=== PATIENT | female | born 1970 | race Caucasian/White ===

== ENCOUNTER 2019-05-29 17:08 | Inpatient (IN) | payer BC ==
[~2019-05-29] VITALS: Ht 152.4 cm; Wt 75.0 kg
[2019-05-29 19:53] LABS: BASO % 0 % (0-3); EOS # 0.4 x10^3/uL (0.0-0.7); EOS % 3 % (0-3); HEMATOCRIT 40.7 % (36.0-47.0); HEMOGLOBIN 13.9 g/dL (12.0-15.5); LYMPH # 4.6 x10^3/uL (1.0-4.8); LYMPH % 27 % (24-48); MEAN CORPUSCULAR HEMOGLOBIN 28 pg (25-35); MEAN CORPUSCULAR HGB CONC 34 g/dL (31-37); MEAN CORPUSCULAR VOLUME 82 fL (79-100); MONO # 1.3 x10^3/uL (0.0-1.1); MONO % 8 % (0-9); NEUT # 10.4 x10^3/uL (1.8-7.7); NEUT % 62 % (31-73); PLATELET COUNT 428 x10^3/uL (140-400); RED BLOOD COUNT 4.99 x10^6/uL (3.50-5.40); RED CELL DISTRIBUTION WIDTH 14.4 % (11.5-14.5); WHITE BLOOD COUNT 16.8 x10^3/uL (4.0-11.0)
[2019-05-29 19:57] LABS: BILIRUBIN,URINE SMALL (NEG); CLARITY,URINE CLEAR; COLOR,URINE AMBER; NITRITE,URINE NEGATIVE (NEG); PROTEIN,URINE NEGATIVE (NEG-TRACE); UROBILINOGEN,URINE 0.2 mg/dL (0.2 mg/dL)
[2019-05-29] MEDS ORDERED: oxyCODONE/APAP 5/325 1 TAB TABLET PO PRN (20:00)
[2019-05-29] MEDS ORDERED: levOFLOXacin PER PHARMACY. MC PRN (20:00)
[2019-05-29] MEDS ORDERED: ACETAMINOPHEN 500 MG TABLET PO PRN (20:00)
[2019-05-29] MEDS ORDERED: IV NORMAL SALINE 1000ML BAG 1,000 ML IV SCH (20:00)
[2019-05-29 20:05] LABS: BACTERIA,URINE MANY /HPF (0-FEW); SQUAMOUS EPITHELIAL CELL,UR MOD /LPF
--- NOTE | 2019-05-29 20:06 | PHYS DOC ---
Past Medical History Past Medical History: Asthma, Gallstones Past Surgical History: Tonsillectomy Additional Past Surgical Histo: KIDNEY Alcohol Use: Occasionally Drug Use: None Adult General Chief Complaint Chief Complaint: ABDOMINAL PAIN HPI HPI Patient is a 48 year old female who presents with complaining of abdominal pain. Patient complaining of intermittent episodes of right upper quadrant and epigastric pain for a while that getting worse for the last 4-5 days as an aching pain with episodes of sharp pain with radiation to her shoulder blade. Patient complaining of nausea and intermittent episodes of vomiting and diarrhea. Patient had outpatient gallbladder ultrasound that showed acute calculus cholecystitis and was advised to come to emergency room by Dr. Rg for hospitalization and surgery. Patient denies fever and chills, chest pain, shortness of breath, focal neuro deficit, urinary symptom, . Review of Systems Review of Systems Constitutional: Denies fever or chills [] Eyes: Denies change in visual acuity, redness, or eye pain [] HENT: Denies nasal congestion or sore throat [] Respiratory: Denies cough or shortness of breath [] Cardiovascular: No additional information not addressed in HPI [] GI: Reports abdominal pain, nausea, vomiting, diarrhea [] : Denies dysuria or hematuria [] Musculoskeletal: Denies back pain or joint pain [] Integument: Denies rash or skin lesions [] Neurologic: Denies headache, focal weakness or sensory changes [] Endocrine: Denies polyuria or polydipsia [] All other systems were reviewed and found to be within normal limits, except as documented in this note. Current Medications Current Medications Allergies Allergies Allergies Coded Allergies Type Severity Reaction Last Updated Verified No Known Drug Allergies 05/29/19 No Physical Exam Physical Exam Constitutional: Well developed, well nourished, mild distress, non-toxic appearance. [] HENT: Normocephalic, atraumatic. Eyes: PERRLA, EOMI, conjunctiva normal, no discharge. [] Neck: Normal range of motion, no tenderness, supple, no stridor. [] Cardiovascular:Heart rate regular rhythm, no murmur [] Lungs & Thorax: Bilateral breath sounds clear to auscultation [] Abdomen: Bowel sounds normal, soft, right upper quadrant tenderness with positive Stevenson's sign, no masses, no pulsatile masses. [] Skin: Warm, dry, no erythema, no rash. [] Back: No tenderness, no CVA tenderness. [] Extremities: No tenderness, no cyanosis, no clubbing, ROM intact, no edema. [] Neurologic: Alert and oriented X 3, no focal deficits noted. [] Psychologic: Affect normal, judgement normal, mood normal. [] Current Patient Data Vital Signs Vital Signs Date Time Temp Pulse Resp B/P (MAP) Pulse Ox O2 Delivery O2 Flow Rate FiO2 05/29/19 19:13 98.8 76 16 123/69 (87) 98 Room Air 98.8 Lab Values Laboratory Tests Test 05/29/19 17:19 05/29/19 19:32 05/29/19 19:40 Urine Collection Type Unknown Urine Color Kacy Urine Clarity Clear Urine pH 6.0 Urine Specific [place] 1.025 Urine Protein Negative mg/dL (NEG-TRACE) Urine Glucose (UA) Negative mg/dL (NEG) Urine Ketones (Stick) Negative mg/dL (NEG) Urine Blood Trace (NEG) Urine Nitrite Negative (NEG) Urine Bilirubin Small (NEG) Urine Urobilinogen Dipstick 0.2 mg/dL (0.2 mg/dL) Urine Leukocyte Esterase Small (NEG) Urine RBC 1-2 /HPF (0-2) Urine WBC 5-10 /HPF (0-4) Urine Squamous Epithelial Cells Mod /LPF Urine Bacteria Many /HPF (0-FEW) Urine Mucus Mod /LPF POC Urine HCG, Qualitative Hcg negative (Negative) White Blood Count 16.8 x10^3/uL (4.0-11.0) H Red Blood Count 4.99 x10^6/uL (3.50-5.40) Hemoglobin 13.9 g/dL (12.0-15.5) Hematocrit 40.7 % (36.0-47.0) Mean Corpuscular Volume 82 fL (79-100) Mean Corpuscular Hemoglobin 28 pg (25-35) Mean Corpuscular Hemoglobin Concent 34 g/dL (31-37) Red Cell Distribution Width 14.4 % (11.5-14.5) Platelet Count 428 x10^3/uL (140-400) H Neutrophils (%) (Auto) 62 % (31-73) Lymphocytes (%) (Auto) 27 % (24-48) Monocytes (%) (Auto) 8 % (0-9) Eosinophils (%) (Auto) 3 % (0-3) Basophils (%) (Auto) 0 % (0-3) Neutrophils # (Auto) 10.4 x10^3/uL (1.8-7.7) H Lymphocytes # (Auto) 4.6 x10^3/uL (1.0-4.8) Monocytes # (Auto) 1.3 x10^3/uL (0.0-1.1) H Eosinophils # (Auto) 0.4 x10^3/uL (0.0-0.7) Basophils # (Auto) 0.0 x10^3/uL (0.0-0.2) Sodium Level 142 mmol/L (136-145) Potassium Level 3.8 mmol/L (3.5-5.1) Chloride Level 102 mmol/L (98-107) Carbon Dioxide Level 30 mmol/L (21-32) Anion Gap 10 (6-14) Blood Urea Nitrogen 13 mg/dL (7-20) Creatinine 0.9 mg/dL (0.6-1.0) Estimated GFR (Cockcroft-Gault) 67.1 BUN/Creatinine Ratio 14 (6-20) Glucose Level 88 mg/dL (70-99) Calcium Level 10.1 mg/dL (8.5-10.1) Total Bilirubin 0.2 mg/dL (0.2-1.0) Aspartate Amino Transferase (AST) 14 U/L (15-37) L Alanine Aminotransferase (ALT) 20 U/L (14-59) Alkaline Phosphatase 104 U/L (46-116) Total Protein 7.8 g/dL (6.4-8.2) Albumin 3.4 g/dL (3.4-5.0) Albumin/Globulin Ratio 0.8 (1.0-1.7) L Lipase 137 U/L (73-393) Laboratory Tests 05/29/19 19:40 Laboratory Tests 05/29/19 19:40 EKG EKG [] Radiology/Procedures Radiology/Procedures [] Course & Med Decision Making Course & Med Decision Making Pertinent Labs reviewed. (See chart for details) Evaluation of patient in ER showed 48-year-old female patient with right upper quadrant pain and positive Morphis in an outpatient ultrasound report that shows a calculus cholecystitis.Patient requiring admission for further evaluation and treatment. Discussed with Dr. Mcclendon who is in agreement with admission. Discussed findings and plan with patient and family, who acknowledge understanding and agreement. Dragon Disclaimer Dragon Disclaimer This electronic medical record was generated, in whole or in part, using a voice recognition dictation system. Departure Departure Impression: Primary Impression: Acute calculous cholecystitis Additional Impression: Urinary tract infection Disposition: ADMITTED INPATIENT (at 1958) Admitting Physician: HIMS (Dr. Mcclendon accepted admission at 1957) Condition: IMPROVED Referrals: UNKNOWN PCP NAME (PCP) Problem Qualifiers Additional Impression: Urinary tract infection Urinary tract infection type: site unspecified Hematuria presence: without hematuria Qualified Codes: N39.0 - Urinary tract infection, site not specified REBECCA MORILLO MD May 29, 2019 20:06
[2019-05-29 20:07] LABS: CALCIUM 10.1 mg/dL (8.5-10.1); CREATININE 0.9 mg/dL (0.6-1.0); GFR 67.1; POTASSIUM 3.8 mmol/L (3.5-5.1)
[2019-05-29 20:14] LABS: ALBUMIN 3.4 g/dL (3.4-5.0); ALBUMIN/GLOBULIN RATIO 0.8 (1.0-1.7); TOTAL BILIRUBIN 0.2 mg/dL (0.2-1.0); TOTAL PROTEIN 7.8 g/dL (6.4-8.2)
[2019-05-29] MEDS ORDERED: KETOROLAC 30 MG/ML VIAL. IV ONE (20:15)
[2019-05-29 20:25] VITALS: BP 119/76
--- NOTE | 2019-05-29 20:28 | NUR ---
The patient, CEZAR RICCI, 48 y/o, F admitted by KAREN CELIS MD, was given written information regarding hospital policies, unit procedures and contact persons. Patient was transported from ED to room 442 via wheelchair with at bedside. RN performed a head to toe assessment at that time, VSS, afebrile, pain rated 4/10. Bed is in lowest locked position and call light within reach. Valuables were checked and left in the room with patient. RN will monitor patient closely.
[2019-05-29] MEDS ORDERED: ONDANSETRON PF 4 MG/2 ML VIAL. IV PRN (20:30)
--- NOTE | 2019-05-29 20:43 | PDOC1 ---
History and Physical Date of Admission Date of Admission DATE: 05/29/19 TIME: 20:40 Identification/Chief Complaint Chief Complaint abd pain x 4 days Source Source: Caregiver, Chart review, Patient History of Present Illness History of Present Illness very pleasant 48 yo white female, no signif past medical, 4 day hx RUQ pain, no fever, no abd pain, no BM changes, US showed acalculous cholecystitis with positive coombs sign as ordered by GS as OP< advised admission, NPO post MN< amenable to sx . NOn toxic appearing- pain controlled with IVpain meds, at bedside Past Medical History Cardiovascular: No pertinent hx Pulmonary: No pertinent hx GI: No pertinent hx Heme/Onc: No pertinent hx Hepatobiliary: No pertinent hx Psych: No pertinent hx Rheumatologic: No pertinent hx Infectious disease: No pertinent hx ENT: No pertinent hx Renal/: No pertinent hx Endocrine: No pertinent hx Dermatology: No pertinent hx Past Surgical History Past Surgical History: No pertinent history Family History Family History: No Significant Social History Smoke: No ALCOHOL: occassional Drugs: None Current Medications Current Medications Current Medications Sodium Chloride 1,000 ml @ 1,000 mls/hr Q1H IV Last administered on 05/29/19at 19:57; Start 05/29/19 at 20:00; Stop 05/29/19 at 20:59 Ketorolac Tromethamine (Toradol 30mg Vial) 30 mg 1X ONCE IV Last administered on 05/29/19at 20:04; Start 05/29/19 at 20:15; Stop 05/29/19 at 20:16; Status DC Fentanyl Citrate (Fentanyl 2ml Vial) 50 mcg PRN Q2HR PRN IV PAIN; Start 05/29/19 at 20:00 Oxycodone/ Acetaminophen (Percocet 5/325) 1 tab PRN Q4HRS PRN PO PAIN; Start 05/29/19 at 20:00 Levofloxacin/ Dextrose (Levaquin Per Pharmacy) 1 each PRN DAILY PRN MC SEE COMMENTS; Start 05/29/19 at 20:00 Acetaminophen (Tylenol) 500 mg PRN Q6HRS PRN PO MILD PAIN / TEMP; Start 05/29/19 at 20:00 Ondansetron HCl (Zofran) 4 mg PRN Q6HRS PRN IV NAUSEA/VOMITING; Start 05/29/19 at 20:00 Zolpidem Tartrate (Ambien) 5 mg PRN QHS PRN PO INSOMNIA; Start 05/29/19 at 20:00 Ondansetron HCl (Zofran) 4 mg PRN Q8HRS PRN IV NAUSEA/VOMITING; Start 05/29/19 at 20:30; Stop 05/30/19 at 20:29; Status UNV Sodium Chloride 1,000 ml @ 150 mls/hr Q6H40M IV ; Start 05/29/19 at 21:00; Stop 05/30/19 at 20:59 Levofloxacin/ Dextrose 100 ml @ 100 mls/hr Q24H IV ; Start 05/29/19 at 21:00 Allergies Allergies: Coded Allergies: No Known Drug Allergies (Unverified , 05/29/19) ROS Review of System as per HPI, rest of 14 pt neg Physical Exam General: Alert, Oriented X3, Cooperative, No acute distress HEENT: Atraumatic, PERRLA, EOMI Lungs: Clear to auscultation, Normal air movement Heart: S1S2, RRR, no thrills, no rubs, no gallops Cardiovascular: S1 Breasts: Normal, Rt breast nml w/o mass, Lt breast nml w/o mass, Nipples normal Abdomen: Normal bowel sounds, Soft, Other (tenderness RUQ but no guarding) Rectal Exam: not examined PELVIC: Nml ext genitalia Extremities: No clubbing, No cyanosis, No edema, Normal pulses, No tenderness/swelling Skin: No rashes, No breakdown, No significant lesion Neuro: Normal gait, Normal speech, Strength at 5/5 X4 ext, Normal tone, Sensation intact, Cranial nerves 3-12 NL, Reflexes 2+ Psych/Mental Status: Mental status NL, Mood NL Vitals Vitals Vital Signs Date Time Temp Pulse Resp B/P (MAP) Pulse Ox O2 Delivery O2 Flow Rate FiO2 05/29/19 20:21 68 18 117/55 (75) 98 Room Air 05/29/19 19:13 98.8 98.8 Labs Labs Laboratory Tests Test 05/29/19 17:19 05/29/19 19:32 05/29/19 19:40 Urine Collection Type Unknown Urine Color Kacy Urine Clarity Clear Urine pH 6.0 Urine Specific [place] 1.025 Urine Protein Negative mg/dL (NEG-TRACE) Urine Glucose (UA) Negative mg/dL (NEG) Urine Ketones (Stick) Negative mg/dL (NEG) Urine Blood Trace (NEG) Urine Nitrite Negative (NEG) Urine Bilirubin Small (NEG) Urine Urobilinogen Dipstick 0.2 mg/dL (0.2 mg/dL) Urine Leukocyte Esterase Small (NEG) Urine RBC 1-2 /HPF (0-2) Urine WBC 5-10 /HPF (0-4) Urine Squamous Epithelial Cells Mod /LPF Urine Bacteria Many /HPF (0-FEW) Urine Mucus Mod /LPF Bedside Urine HCG, Qualitative Hcg negative (Negative) White Blood Count 16.8 x10^3/uL (4.0-11.0) Red Blood Count 4.99 x10^6/uL (3.50-5.40) Hemoglobin 13.9 g/dL (12.0-15.5) Hematocrit 40.7 % (36.0-47.0) Mean Corpuscular Volume 82 fL (79-100) Mean Corpuscular Hemoglobin 28 pg (25-35) Mean Corpuscular Hemoglobin Concent 34 g/dL (31-37) Red Cell Distribution Width 14.4 % (11.5-14.5) Platelet Count 428 x10^3/uL (140-400) Neutrophils (%) (Auto) 62 % (31-73) Lymphocytes (%) (Auto) 27 % (24-48) Monocytes (%) (Auto) 8 % (0-9) Eosinophils (%) (Auto) 3 % (0-3) Basophils (%) (Auto) 0 % (0-3) Neutrophils # (Auto) 10.4 x10^3/uL (1.8-7.7) Lymphocytes # (Auto) 4.6 x10^3/uL (1.0-4.8) Monocytes # (Auto) 1.3 x10^3/uL (0.0-1.1) Eosinophils # (Auto) 0.4 x10^3/uL (0.0-0.7) Basophils # (Auto) 0.0 x10^3/uL (0.0-0.2) Sodium Level 142 mmol/L (136-145) Potassium Level 3.8 mmol/L (3.5-5.1) Chloride Level 102 mmol/L (98-107) Carbon Dioxide Level 30 mmol/L (21-32) Anion Gap 10 (6-14) Blood Urea Nitrogen 13 mg/dL (7-20) Creatinine 0.9 mg/dL (0.6-1.0) Estimated GFR (Cockcroft-Gault) 67.1 BUN/Creatinine Ratio 14 (6-20) Glucose Level 88 mg/dL (70-99) Calcium Level 10.1 mg/dL (8.5-10.1) Total Bilirubin 0.2 mg/dL (0.2-1.0) Aspartate Amino Transf (AST/SGOT) 14 U/L (15-37) Alanine Aminotransferase (ALT/SGPT) 20 U/L (14-59) Alkaline Phosphatase 104 U/L (46-116) Total Protein 7.8 g/dL (6.4-8.2) Albumin 3.4 g/dL (3.4-5.0) Albumin/Globulin Ratio 0.8 (1.0-1.7) Lipase 137 U/L (73-393) Laboratory Tests Test 05/29/19 17:19 05/29/19 19:32 05/29/19 19:40 Urine Collection Type Unknown Urine Color Kacy Urine Clarity Clear Urine pH 6.0 Urine Specific [place] 1.025 Urine Protein Negative mg/dL (NEG-TRACE) Urine Glucose (UA) Negative mg/dL (NEG) Urine Ketones (Stick) Negative mg/dL (NEG) Urine Blood Trace (NEG) Urine Nitrite Negative (NEG) Urine Bilirubin Small (NEG) Urine Urobilinogen Dipstick 0.2 mg/dL (0.2 mg/dL) Urine Leukocyte Esterase Small (NEG) Urine RBC 1-2 /HPF (0-2) Urine WBC 5-10 /HPF (0-4) Urine Squamous Epithelial Cells Mod /LPF Urine Bacteria Many /HPF (0-FEW) Urine Mucus Mod /LPF Bedside Urine HCG, Qualitative Hcg negative (Negative) White Blood Count 16.8 x10^3/uL (4.0-11.0) Red Blood Count 4.99 x10^6/uL (3.50-5.40) Hemoglobin 13.9 g/dL (12.0-15.5) Hematocrit 40.7 % (36.0-47.0) Mean Corpuscular Volume 82 fL (79-100) Mean Corpuscular Hemoglobin 28 pg (25-35) Mean Corpuscular Hemoglobin Concent 34 g/dL (31-37) Red Cell Distribution Width 14.4 % (11.5-14.5) Platelet Count 428 x10^3/uL (140-400) Neutrophils (%) (Auto) 62 % (31-73) Lymphocytes (%) (Auto) 27 % (24-48) Monocytes (%) (Auto) 8 % (0-9) Eosinophils (%) (Auto) 3 % (0-3) Basophils (%) (Auto) 0 % (0-3) Neutrophils # (Auto) 10.4 x10^3/uL (1.8-7.7) Lymphocytes # (Auto) 4.6 x10^3/uL (1.0-4.8) Monocytes # (Auto) 1.3 x10^3/uL (0.0-1.1) Eosinophils # (Auto) 0.4 x10^3/uL (0.0-0.7) Basophils # (Auto) 0.0 x10^3/uL (0.0-0.2) Sodium Level 142 mmol/L (136-145) Potassium Level 3.8 mmol/L (3.5-5.1) Chloride Level 102 mmol/L (98-107) Carbon Dioxide Level 30 mmol/L (21-32) Anion Gap 10 (6-14) Blood Urea Nitrogen 13 mg/dL (7-20) Creatinine 0.9 mg/dL (0.6-1.0) Estimated GFR (Cockcroft-Gault) 67.1 BUN/Creatinine Ratio 14 (6-20) Glucose Level 88 mg/dL (70-99) Calcium Level 10.1 mg/dL (8.5-10.1) Total Bilirubin 0.2 mg/dL (0.2-1.0) Aspartate Amino Transf (AST/SGOT) 14 U/L (15-37) Alanine Aminotransferase (ALT/SGPT) 20 U/L (14-59) Alkaline Phosphatase 104 U/L (46-116) Total Protein 7.8 g/dL (6.4-8.2) Albumin 3.4 g/dL (3.4-5.0) Albumin/Globulin Ratio 0.8 (1.0-1.7) Lipase 137 U/L (73-393) VTE Prophylaxis Ordered VTE Prophylaxis Devices: Yes VTE Pharmacological Prophylaxi: Yes Assessment/Plan Assessment/Plan 1. Acalculous cholecystitis with positive muphy sign and symptomatic - may have light diet tonyt then NPO post mn GS consulted, no home emds ti reconcile Pain control etc Full code seen at ER KAREN CELIS MD May 29, 2019 20:43
[2019-05-29] MEDS: ZOLPIDEM 5 MG TABLET. PO PRN (23:14)
[2019-05-29 23:26] VITALS: BP 114/61
[2019-05-30] VITALS (12 sets, daily range): BP systolic 99–134; BP diastolic 50–77
[2019-05-30] MEDS ORDERED: ALPR0.5T6 PO (00:08)
[2019-05-30] MEDS ORDERED: LINZESS145 MCG PO (00:09)
[2019-05-30] MEDS: PIPERACILLIN/TAZOBACTAM 3.375 GM in IV NORMAL SALINE 50ML 50 ML IV SCH ×5 (00:25→23:47)
[2019-05-30] MEDS: IV NORMAL SALINE 1000ML BAG 1,000 ML IV SCH ×3 (03:35→10:45)
[2019-05-30] MEDS ORDERED: DEXAMETHASONE SOD PHOS 4 MG/ML VIAL ONE (10:38)
[2019-05-30] MEDS ORDERED: PROPOFOL 20 ML IV ONE (10:38)
[2019-05-30] MEDS ORDERED: ONDANSETRON PF 4 MG/2 ML VIAL. ONE (10:38)
[2019-05-30] MEDS ORDERED: MIDAZOLAM HCL/PF 2 MG/2 ML VIAL. ONE (10:38)
[2019-05-30] MEDS ORDERED: fentaNYL PF VIAL 100 MCG/2 ML VIAL ONE ×2 (10:38→12:35)
[2019-05-30] MEDS ORDERED: LIDOCAINE 2% PF 5 ML VIAL. ONE (10:38)
[2019-05-30] MEDS ORDERED: ROCURONIUM 50 MG/5 ML VIAL. ONE (10:39)
[2019-05-30] MEDS ORDERED: BUPIVAC MPF-EPI 0.5%-1:200000 30 ML VIAL. INJ ONE (10:45)
--- NOTE | 2019-05-30 10:45 | NUR ---
Pt to surgery by bed, dentures, glasses and jewelry left in the room. No family at bedside.
[2019-05-30] MEDS ORDERED: IV RINGERS,LACTATED 1000ML 1,000 ML IV SCH (10:47)
[2019-05-30] MEDS ORDERED: GLUCAGON,HUMAN RECOMBINANT 1 MG/ML VIAL. ONE (10:51)
[2019-05-30] MEDS ORDERED: IOHEXOL 300 MG/ML 50 ML VIAL. ONE (10:51)
[2019-05-30] MEDS ORDERED: SURGICEL HEMOSTAT 4X8 EACH. ONE (10:51)
[2019-05-30] MEDS ORDERED: PROCHLORPERAZINE 10 MG/2 ML VIAL. IV PRN (11:00)
[2019-05-30] MEDS ORDERED: HYDROmorphone 2 MG/ML VIAL IV PRN ×2 (11:00→12:45)
[2019-05-30] MEDS ORDERED: fentaNYL PF VIAL 100 MCG/2 ML VIAL IV PRN ×2 (11:00)
--- NOTE | 2019-05-30 11:19 | PDOC2 ---
CONSULT Date of Consult Date of Consult DATE: 05/30/19 TIME: 11:15 Reason for Consult Reason for Consult: symptomatic cholelithiasis Referring Physician Referring Physician: IPC Identification/Chief Complaint Chief Complaint RUQ pain Source Source: Chart review, Patient History of Present Illness Reason for Visit: Trudy is a 48 yo female I know from previous I and D gluteal abscess. She has had RUQ pain, and nausea prompting an US. This showed cholelithiasis with some wall thickening. Past Medical History Cardiovascular: No pertinent hx Pulmonary: No pertinent hx GI: No pertinent hx Heme/Onc: No pertinent hx Hepatobiliary: No pertinent hx Psych: No pertinent hx Rheumatologic: No pertinent hx Infectious disease: No pertinent hx ENT: No pertinent hx Renal/: No pertinent hx Endocrine: No pertinent hx Dermatology: No pertinent hx Past Surgical History Past Surgical History: No pertinent history Family History Family History: No Significant Social History No ALCOHOL: occassional Drugs: None Current Problem List Problem List Problems Medical Problems: (1) Urinary tract infection Status: Acute Current Medications Current Medications Current Medications Sodium Chloride 1,000 ml @ 1,000 mls/hr Q1H IV Last administered on 05/29/19at 19:57; Start 05/29/19 at 20:00; Stop 05/29/19 at 20:59; Status DC Ketorolac Tromethamine (Toradol 30mg Vial) 30 mg 1X ONCE IV Last administered on 05/29/19at 20:04; Start 05/29/19 at 20:15; Stop 05/29/19 at 20:16; Status DC Fentanyl Citrate (Fentanyl 2ml Vial) 50 mcg PRN Q2HR PRN IV PAIN; Start 05/29/19 at 20:00 Oxycodone/ Acetaminophen (Percocet 5/325) 1 tab PRN Q4HRS PRN PO PAIN; Start 05/29/19 at 20:00 Levofloxacin/ Dextrose (Levaquin Per Pharmacy) 1 each PRN DAILY PRN MC SEE COMMENTS; Start 05/29/19 at 20:00 Acetaminophen (Tylenol) 500 mg PRN Q6HRS PRN PO MILD PAIN / TEMP; Start 05/29/19 at 20:00 Ondansetron HCl (Zofran) 4 mg PRN Q6HRS PRN IV NAUSEA/VOMITING; Start 05/29/19 at 20:00 Zolpidem Tartrate (Ambien) 5 mg PRN QHS PRN PO INSOMNIA Last administered on 05/29/19at 23:15; Start 05/29/19 at 20:00 Ondansetron HCl (Zofran) 4 mg PRN Q8HRS PRN IV NAUSEA/VOMITING; Start 05/29/19 at 20:30; Stop 05/30/19 at 20:29; Status UNV Sodium Chloride 1,000 ml @ 150 mls/hr Q6H40M IV Last administered on 05/30/19at 03:35; Start 05/29/19 at 21:00; Stop 05/30/19 at 20:59 Levofloxacin/ Dextrose 100 ml @ 100 mls/hr Q24H IV Last administered on 05/29/19at 21:41; Start 05/29/19 at 21:00 Piperacillin Sod/ Tazobactam Sod 3.375 gm/Sodium Chloride 50 ml @ 100 mls/hr Q6HRS IV Last administered on 05/30/19at 06:15; Start 05/30/19 at 00:00 Metronidazole 100 ml @ 100 mls/hr Q8HRS IV Last administered on 05/30/19at 04:59; Start 05/29/19 at 22:00 Cefazolin Sodium/ Dextrose 50 ml @ 100 mls/hr 1X PREOP PRN IV protocol; Start 05/30/19 at 10:30; Stop 05/31/19 at 18:00 Propofol 20 ml @ As Directed STK-MED ONCE IV ; Start 05/30/19 at 10:38; Stop 05/30/19 at 10:38; Status DC Lidocaine HCl (Lidocaine Pf 2% Vial) 5 ml STK-MED ONCE .ROUTE ; Start 05/30/19 at 10:38; Stop 05/30/19 at 10:38; Status DC Ondansetron HCl (Zofran) 4 mg STK-MED ONCE .ROUTE ; Start 05/30/19 at 10:38; Stop 05/30/19 at 10:38; Status DC Dexamethasone Sodium Phosphate (Decadron) 4 mg STK-MED ONCE .ROUTE ; Start 05/30/19 at 10:38; Stop 05/30/19 at 10:38; Status DC Fentanyl Citrate (Fentanyl 2ml Vial) 100 mcg STK-MED ONCE .ROUTE ; Start 05/30/19 at 10:38; Stop 05/30/19 at 10:38; Status DC Midazolam HCl (Versed) 2 mg STK-MED ONCE .ROUTE ; Start 05/30/19 at 10:38; Stop 05/30/19 at 10:38; Status DC Rocuronium [place] (Zemuron) 50 mg STK-MED ONCE .ROUTE ; Start 05/30/19 at 10:39; Stop 05/30/19 at 10:39; Status DC Bupivacaine HCl/ Epinephrine Bitart (Sensorcain-Mpf Epi 0.5%-[id number]) 30 ml 1X ONCE INJ ; Start 05/30/19 at 10:45; Stop 05/30/19 at 10:46; Status DC Fentanyl Citrate (Fentanyl 2ml Vial) 25 mcg PRN Q5MIN PRN IV MILD PAIN 1-3; Start 05/30/19 at 11:00; Stop 05/31/19 at 10:59 Fentanyl Citrate (Fentanyl 2ml Vial) 50 mcg PRN Q5MIN PRN IV MODERATE TO SEVERE PAIN; Start 05/30/19 at 11:00; Stop 05/31/19 at 10:59 Morphine Sulfate (Morphine Sulfate) 1 mg PRN Q10MIN PRN IV SEVERE PAIN 7-10; Start 05/30/19 at 11:00; Stop 05/31/19 at 10:59 Ringer's Solution 1,000 ml @ 30 mls/hr Q24H IV ; Start 05/30/19 at 10:47; Stop 05/30/19 at 22:46 Hydromorphone HCl (Dilaudid) 0.5 mg PRN Q10MIN PRN IV SEV PAIN, Second choice; Start 05/30/19 at 11:00; Stop 05/31/19 at 10:59 Prochlorperazine Edisylate (Compazine) 5 mg PACU PRN PRN IV NAUSEA, MRX1; Start 05/30/19 at 11:00; Stop 05/31/19 at 10:59 Glucagon (Glucagen) 1 mg STK-MED ONCE .ROUTE ; Start 05/30/19 at 10:51; Stop 05/30/19 at 10:51; Status DC Iohexol (Omnipaque 300 Mg/ml) 50 ml STK-MED ONCE .ROUTE ; Start 05/30/19 at 10:5 1; Stop 05/30/19 at 10:51; Status DC Cellulose (Surgicel Hemostat 4x8) 1 each STK-MED ONCE .ROUTE ; Start 05/30/19 at 10:51; Stop 05/30/19 at 10:51; Status DC Active Scripts Active Reported Linzess (Linaclotide) 145 Mcg Capsule 145 Mcg PO DAILY07 Alprazolam 0.5 Mg Tablet 0.5 Mg PO PRN Q6HRS PRN Allergies Allergies: Coded Allergies: No Known Drug Allergies (Unverified , 05/29/19) ROS Review of System negative with exception of present complaints Physical Exam General: Alert, Cooperative, No acute distress HEENT: Atraumatic Lungs: Normal air movement Heart: Regular rate Abdomen: Soft, Other (minimally TTP in the RUQ) Extremities: No clubbing Neuro: Normal speech Vitals VITALS Vital Signs Date Time Temp Pulse Resp B/P (MAP) Pulse Ox O2 Delivery O2 Flow Rate FiO2 05/30/19 07:50 Room Air 05/30/19 07:00 97.7 54 18 99/50 (66) 100 97.7 Labs Labs Laboratory Tests Test 05/29/19 17:19 05/29/19 19:32 05/29/19 19:40 Urine Collection Type Unknown Urine Color Kacy Urine Clarity Clear Urine pH 6.0 Urine Specific [place] 1.025 Urine Protein Negative mg/dL (NEG-TRACE) Urine Glucose (UA) Negative mg/dL (NEG) Urine Ketones (Stick) Negative mg/dL (NEG) Urine Blood Trace (NEG) Urine Nitrite Negative (NEG) Urine Bilirubin Small (NEG) Urine Urobilinogen Dipstick 0.2 mg/dL (0.2 mg/dL) Urine Leukocyte Esterase Small (NEG) Urine RBC 1-2 /HPF (0-2) Urine WBC 5-10 /HPF (0-4) Urine Squamous Epithelial Cells Mod /LPF Urine Bacteria Many /HPF (0-FEW) Urine Mucus Mod /LPF Bedside Urine HCG, Qualitative Hcg negative (Negative) White Blood Count 16.8 x10^3/uL (4.0-11.0) Red Blood Count 4.99 x10^6/uL (3.50-5.40) Hemoglobin 13.9 g/dL (12.0-15.5) Hematocrit 40.7 % (36.0-47.0) Mean Corpuscular Volume 82 fL (79-100) Mean Corpuscular Hemoglobin 28 pg (25-35) Mean Corpuscular Hemoglobin Concent 34 g/dL (31-37) Red Cell Distribution Width 14.4 % (11.5-14.5) Platelet Count 428 x10^3/uL (140-400) Neutrophils (%) (Auto) 62 % (31-73) Lymphocytes (%) (Auto) 27 % (24-48) Monocytes (%) (Auto) 8 % (0-9) Eosinophils (%) (Auto) 3 % (0-3) Basophils (%) (Auto) 0 % (0-3) Neutrophils # (Auto) 10.4 x10^3/uL (1.8-7.7) Lymphocytes # (Auto) 4.6 x10^3/uL (1.0-4.8) Monocytes # (Auto) 1.3 x10^3/uL (0.0-1.1) Eosinophils # (Auto) 0.4 x10^3/uL (0.0-0.7) Basophils # (Auto) 0.0 x10^3/uL (0.0-0.2) Sodium Level 142 mmol/L (136-145) Potassium Level 3.8 mmol/L (3.5-5.1) Chloride Level 102 mmol/L (98-107) Carbon Dioxide Level 30 mmol/L (21-32) Anion Gap 10 (6-14) Blood Urea Nitrogen 13 mg/dL (7-20) Creatinine 0.9 mg/dL (0.6-1.0) Estimated GFR (Cockcroft-Gault) 67.1 BUN/Creatinine Ratio 14 (6-20) Glucose Level 88 mg/dL (70-99) Calcium Level 10.1 mg/dL (8.5-10.1) Total Bilirubin 0.2 mg/dL (0.2-1.0) Aspartate Amino Transf (AST/SGOT) 14 U/L (15-37) Alanine Aminotransferase (ALT/SGPT) 20 U/L (14-59) Alkaline Phosphatase 104 U/L (46-116) Total Protein 7.8 g/dL (6.4-8.2) Albumin 3.4 g/dL (3.4-5.0) Albumin/Globulin Ratio 0.8 (1.0-1.7) Lipase 137 U/L (73-393) Laboratory Tests Test 05/29/19 17:19 05/29/19 19:32 05/29/19 19:40 Urine Collection Type Unknown Urine Color Kacy Urine Clarity Clear Urine pH 6.0 Urine Specific [place] 1.025 Urine Protein Negative mg/dL (NEG-TRACE) Urine Glucose (UA) Negative mg/dL (NEG) Urine Ketones (Stick) Negative mg/dL (NEG) Urine Blood Trace (NEG) Urine Nitrite Negative (NEG) Urine Bilirubin Small (NEG) Urine Urobilinogen Dipstick 0.2 mg/dL (0.2 mg/dL) Urine Leukocyte Esterase Small (NEG) Urine RBC 1-2 /HPF (0-2) Urine WBC 5-10 /HPF (0-4) Urine Squamous Epithelial Cells Mod /LPF Urine Bacteria Many /HPF (0-FEW) Urine Mucus Mod /LPF Bedside Urine HCG, Qualitative Hcg negative (Negative) White Blood Count 16.8 x10^3/uL (4.0-11.0) Red Blood Count 4.99 x10^6/uL (3.50-5.40) Hemoglobin 13.9 g/dL (12.0-15.5) Hematocrit 40.7 % (36.0-47.0) Mean Corpuscular Volume 82 fL (79-100) Mean Corpuscular Hemoglobin 28 pg (25-35) Mean Corpuscular Hemoglobin Concent 34 g/dL (31-37) Red Cell Distribution Width 14.4 % (11.5-14.5) Platelet Count 428 x10^3/uL (140-400) Neutrophils (%) (Auto) 62 % (31-73) Lymphocytes (%) (Auto) 27 % (24-48) Monocytes (%) (Auto) 8 % (0-9) Eosinophils (%) (Auto) 3 % (0-3) Basophils (%) (Auto) 0 % (0-3) Neutrophils # (Auto) 10.4 x10^3/uL (1.8-7.7) Lymphocytes # (Auto) 4.6 x10^3/uL (1.0-4.8) Monocytes # (Auto) 1.3 x10^3/uL (0.0-1.1) Eosinophils # (Auto) 0.4 x10^3/uL (0.0-0.7) Basophils # (Auto) 0.0 x10^3/uL (0.0-0.2) Sodium Level 142 mmol/L (136-145) Potassium Level 3.8 mmol/L (3.5-5.1) Chloride Level 102 mmol/L (98-107) Carbon Dioxide Level 30 mmol/L (21-32) Anion Gap 10 (6-14) Blood Urea Nitrogen 13 mg/dL (7-20) Creatinine 0.9 mg/dL (0.6-1.0) Estimated GFR (Cockcroft-Gault) 67.1 BUN/Creatinine Ratio 14 (6-20) Glucose Level 88 mg/dL (70-99) Calcium Level 10.1 mg/dL (8.5-10.1) Total Bilirubin 0.2 mg/dL (0.2-1.0) Aspartate Amino Transf (AST/SGOT) 14 U/L (15-37) Alanine Aminotransferase (ALT/SGPT) 20 U/L (14-59) Alkaline Phosphatase 104 U/L (46-116) Total Protein 7.8 g/dL (6.4-8.2) Albumin 3.4 g/dL (3.4-5.0) Albumin/Globulin Ratio 0.8 (1.0-1.7) Lipase 137 U/L (73-393) Images Images GB US is reviewed Assessment/Plan Assessment/Plan symptomatic cholelithiasis explained risks of cholecystectomy including but not limited to bleeding, infection, injury to bowel, liver or bile ducts with need for further surgery. possible open procedure, diarrhea or drain she will proceed Thanks for consult CAROLE PEREZ MD May 30, 2019 11:19
[2019-05-30] MEDS ORDERED: GLYCOPYRROLATE 1 MG/5 ML VIAL. ONE (11:56)
[2019-05-30] MEDS ORDERED: NEOSTIGMINE METHYLSULFATE 5 MG/5 ML SYRINGE. ONE (11:56)
--- NOTE | 2019-05-30 11:58 | RAD ---
Intraoperative cholangiogram 05/30/2019 CLINICAL HISTORY: Laparoscopic cholecystectomy. Three digital spot radiographs of the right upper quadrant abdomen were obtained during an intraoperative cholangiogram. The total fluoroscopic time is listed as 0.1 minutes. These images demonstrate contrast opacifying the cystic duct remnant, common hepatic duct and proximal left and right hepatic ducts and their branches along with the common bile duct. Free spillage of contrast into the duodenum is noted. No filling defect is seen. IMPRESSION: Negative study. Electronically signed by: Jones West MD (05/30/2019 11:55 AM) [id number]
[2019-05-30] MEDS ORDERED: SEVOFLURANE 61 TO 120 MINUTES. IH ONE (12:07)
[2019-05-30] MEDS: fentaNYL PF VIAL 100 MCG/2 ML VIAL IV PRN ×4 (12:40→23:47)
[2019-05-30] MEDS ORDERED: IV NORMAL SALINE 1000ML BAG 1,000 ML IV SCH (12:41)
[2019-05-30] MEDS ORDERED: IV DEXTROSE 5% 250 ML BAG. IV PRN (12:45)
[2019-05-30] MEDS ORDERED: 0.9 % SODIUM CHLORIDE 10 ML DISP.SYRIN. IV PRN (12:45)
[2019-05-30] MEDS ORDERED: diphenhydrAMINE HCL 25 MG CAPSULE PO PRN (12:45)
[2019-05-30] MEDS ORDERED: ONDANSETRON PF 4 MG/2 ML VIAL. IV PRN (12:45)
[2019-05-30] MEDS ORDERED: NALOXONE 0.4 MG/ML VIAL. IV PRN (12:45)
[2019-05-30] MEDS ORDERED: DEXTROSE 50% 25 GM / 50ML DISP.SYRIN. IV PRN (12:45)
--- NOTE | 2019-05-30 12:51 | PDOC ---
BRIEF OPERATIVE NOTE Date: May 30, 2019 Pre-Op Diagnosis symptomatic cholelithiasis Post-Op Diagnosis same with acute cholecystitis Procedure Performed l/s cholecystectomy with jazlyn Surgeon Arcenio Stitcher Around Pricila MOSS Anesthesia Type: General Blood Loss 10cc IV Fluid 500cc Specimens Obtained GB Findings edematous, distended GB,normal grams Complications none Operative Note Wk # [id number] CAROLE PEREZ MD May 30, 2019 12:51
[2019-05-30] MEDS ORDERED: MORPHINE SULFATE 2 MG/ML VIAL. ONE (12:55)
[2019-05-30] MEDS: MORPHINE SULFATE 2 MG/ML VIAL. IV PRN ×2 (12:59→13:12)
--- NOTE | 2019-05-30 13:24 | OP ---
DATE OF SURGERY: 05/30/2019 PREOPERATIVE DIAGNOSIS: Symptomatic cholelithiasis. POSTOPERATIVE DIAGNOSES: Symptomatic cholelithiasis with acute cholecystitis. PROCEDURE: Laparoscopic cholecystectomy with cholangiogram. SURGEON: Kostas Perez MD ANESTHESIA: General endotracheal. INDUSTRIAL WORKERS: ISA Latham ESTIMATED BLOOD LOSS: 10 mL. INTRAVENOUS FLUID: 500 mL. DESCRIPTION OF PROCEDURE: The patient brought to the operating suite, given a general endotracheal anesthetic and the abdomen prepped and draped in usual sterile fashion. A supraumbilical incision was infiltrated with local anesthetic, incised and a 5 mm Visiport used to safely gain access into the abdominal cavity, taking care to avoid injury to abdominal contents. Pneumoperitoneum established. Camera inserted. The liver was smooth and sharp. The gallbladder was edematous and distended and had omental adhesions on the inferior surface. Remainder of the inspection of the abdomen failed to reveal obvious abnormalities. With the table in reverse Trendelenburg rolled to the left, the epigastric, midclavicular and lateral ports were placed under direct vision. Approximately 80 mL of concentrated bile were aspirated from the distended gallbladder to allow grasping of the fundus and retracting it superolaterally. A careful blunt and cautery dissection of the omental adhesions to expose the gallbladder, taking care to avoid injury to the adjacent bowel. The cystic duct and cystic artery were identified. The duct was clipped on the gallbladder side. Cholangiograms were made. These were normal. In light of this, the catheter was removed. The cystic duct was clipped x 3 and divided, taking care to avoid injury or compromise the common duct. An anterior and posterior branch of the cystic artery were clipped and divided and gallbladder freed from the bed with cautery dissection and placed in an EndoCatch bag. Hemostasis obtained in the fossa with cautery and some Surgicel. No evidence of bile leak was seen. A 19-Telugu round Ted drain was brought through the epigastric port out the lateral port, sewn to the skin with a silk stitch and left in the subhepatic space for postoperative drainage. Table returned to level. Gallbladder delivered through the epigastric incision. Incision closed with interrupted 0 Vicryl suture. Intra-abdominal pressure decreased to 6 cm of water. No bleeding from the epigastric closure, midclavicular port site after its removal, or from the drain site. Abdomen decompressed, camera removed, no bleeding seen. Skin incisions closed with subcuticular 4-0 Monocryl. Steri-Strips and sterile dressings applied. The patient awakened from her anesthetic and taken to the recovery room in satisfactory condition. KOSTAS PEREZ MD DR: FIDELINA/qing JOB#: [id number] / [id number]
--- NOTE | 2019-05-30 13:50 | NUR ---
Pt back from surgery. A&Ox4, c/o abd pain 04/25, will give pain meds. 3 lap sites CDI, PRECIOUS drain to RUQ draining serosanguineous drainage. Ice pack to abd for comfort. Toleration water and jello. Frequent vitals started. at bedside. Call light within reach, will continue to monitor.
[2019-05-30] MEDS: DOCUSATE SODIUM 100 MG CAPSULE. PO SCH ×2 (13:58→21:15)
[2019-05-30] MEDS: POTASSIUM CL 20MEQ-0.45% NACL 1,000 ML IV SCH ×2 (13:58→17:25)
[2019-05-30] MEDS: ENOXAPARIN 40 MG/0.4 ML SYRINGE. SQ SCH (13:58)
--- NOTE | 2019-05-30 14:00 | NUR ---
1300 lovenox non-administered, it has not been 10 hours since surgery.
--- NOTE | 2019-05-30 14:59 | PDOC ---
PROGRESS NOTES Chief Complaint Chief Complaint 1. Acalculous cholecystitis w SIRS abx pain anxiety disorder irritable bowel obese, BMI 32 History of Present Illness History of Present Illness to surg today, Dr. Rg, edd with grams, cx pending on abx, pain OK, cont current IV prn pain meds, try diet later Vitals Vitals Vital Signs Date Time Temp Pulse Resp B/P (MAP) Pulse Ox O2 Delivery O2 Flow Rate FiO2 05/30/19 14:45 Nasal Cannula 05/30/19 14:10 57 18 112/64 (80) 97 2.0 05/30/19 13:25 97.8 97.8 Physical Exam General: Alert, Cooperative, No acute distress Heart: Regular rate Abdomen: Soft, Other (minimally TTP in the RUQ) Extremities: No clubbing Skin: No rashes, No breakdown, No significant lesion Labs LABS Laboratory Tests Test 05/29/19 17:19 05/29/19 19:32 05/29/19 19:40 Urine Collection Type Unknown Urine Color Kacy Urine Clarity Clear Urine pH 6.0 Urine Specific [place] 1.025 Urine Protein Negative mg/dL (NEG-TRACE) Urine Glucose (UA) Negative mg/dL (NEG) Urine Ketones (Stick) Negative mg/dL (NEG) Urine Blood Trace (NEG) Urine Nitrite Negative (NEG) Urine Bilirubin Small (NEG) Urine Urobilinogen Dipstick 0.2 mg/dL (0.2 mg/dL) Urine Leukocyte Esterase Small (NEG) Urine RBC 1-2 /HPF (0-2) Urine WBC 5-10 /HPF (0-4) Urine Squamous Epithelial Cells Mod /LPF Urine Bacteria Many /HPF (0-FEW) Urine Mucus Mod /LPF Bedside Urine HCG, Qualitative Hcg negative (Negative) White Blood Count 16.8 x10^3/uL (4.0-11.0) Red Blood Count 4.99 x10^6/uL (3.50-5.40) Hemoglobin 13.9 g/dL (12.0-15.5) Hematocrit 40.7 % (36.0-47.0) Mean Corpuscular Volume 82 fL (79-100) Mean Corpuscular Hemoglobin 28 pg (25-35) Mean Corpuscular Hemoglobin Concent 34 g/dL (31-37) Red Cell Distribution Width 14.4 % (11.5-14.5) Platelet Count 428 x10^3/uL (140-400) Neutrophils (%) (Auto) 62 % (31-73) Lymphocytes (%) (Auto) 27 % (24-48) Monocytes (%) (Auto) 8 % (0-9) Eosinophils (%) (Auto) 3 % (0-3) Basophils (%) (Auto) 0 % (0-3) Neutrophils # (Auto) 10.4 x10^3/uL (1.8-7.7) Lymphocytes # (Auto) 4.6 x10^3/uL (1.0-4.8) Monocytes # (Auto) 1.3 x10^3/uL (0.0-1.1) Eosinophils # (Auto) 0.4 x10^3/uL (0.0-0.7) Basophils # (Auto) 0.0 x10^3/uL (0.0-0.2) Sodium Level 142 mmol/L (136-145) Potassium Level 3.8 mmol/L (3.5-5.1) Chloride Level 102 mmol/L (98-107) Carbon Dioxide Level 30 mmol/L (21-32) Anion Gap 10 (6-14) Blood Urea Nitrogen 13 mg/dL (7-20) Creatinine 0.9 mg/dL (0.6-1.0) Estimated GFR (Cockcroft-Gault) 67.1 BUN/Creatinine Ratio 14 (6-20) Glucose Level 88 mg/dL (70-99) Calcium Level 10.1 mg/dL (8.5-10.1) Total Bilirubin 0.2 mg/dL (0.2-1.0) Aspartate Amino Transf (AST/SGOT) 14 U/L (15-37) Alanine Aminotransferase (ALT/SGPT) 20 U/L (14-59) Alkaline Phosphatase 104 U/L (46-116) Total Protein 7.8 g/dL (6.4-8.2) Albumin 3.4 g/dL (3.4-5.0) Albumin/Globulin Ratio 0.8 (1.0-1.7) Lipase 137 U/L (73-393) Assessment and Plan Assessmemt and Plan Problems Medical Problems: (1) Urinary tract infection Status: Acute Comment Review of Relevant I have reviewed the following items gurjit (where applicable) has been applied. Labs Laboratory Tests Test 05/29/19 17:19 05/29/19 19:32 05/29/19 19:40 Urine Collection Type Unknown Urine Color Kacy Urine Clarity Clear Urine pH 6.0 Urine Specific [place] 1.025 Urine Protein Negative mg/dL (NEG-TRACE) Urine Glucose (UA) Negative mg/dL (NEG) Urine Ketones (Stick) Negative mg/dL (NEG) Urine Blood Trace (NEG) Urine Nitrite Negative (NEG) Urine Bilirubin Small (NEG) Urine Urobilinogen Dipstick 0.2 mg/dL (0.2 mg/dL) Urine Leukocyte Esterase Small (NEG) Urine RBC 1-2 /HPF (0-2) Urine WBC 5-10 /HPF (0-4) Urine Squamous Epithelial Cells Mod /LPF Urine Bacteria Many /HPF (0-FEW) Urine Mucus Mod /LPF Bedside Urine HCG, Qualitative Hcg negative (Negative) White Blood Count 16.8 x10^3/uL (4.0-11.0) Red Blood Count 4.99 x10^6/uL (3.50-5.40) Hemoglobin 13.9 g/dL (12.0-15.5) Hematocrit 40.7 % (36.0-47.0) Mean Corpuscular Volume 82 fL (79-100) Mean Corpuscular Hemoglobin 28 pg (25-35) Mean Corpuscular Hemoglobin Concent 34 g/dL (31-37) Red Cell Distribution Width 14.4 % (11.5-14.5) Platelet Count 428 x10^3/uL (140-400) Neutrophils (%) (Auto) 62 % (31-73) Lymphocytes (%) (Auto) 27 % (24-48) Monocytes (%) (Auto) 8 % (0-9) Eosinophils (%) (Auto) 3 % (0-3) Basophils (%) (Auto) 0 % (0-3) Neutrophils # (Auto) 10.4 x10^3/uL (1.8-7.7) Lymphocytes # (Auto) 4.6 x10^3/uL (1.0-4.8) Monocytes # (Auto) 1.3 x10^3/uL (0.0-1.1) Eosinophils # (Auto) 0.4 x10^3/uL (0.0-0.7) Basophils # (Auto) 0.0 x10^3/uL (0.0-0.2) Sodium Level 142 mmol/L (136-145) Potassium Level 3.8 mmol/L (3.5-5.1) Chloride Level 102 mmol/L (98-107) Carbon Dioxide Level 30 mmol/L (21-32) Anion Gap 10 (6-14) Blood Urea Nitrogen 13 mg/dL (7-20) Creatinine 0.9 mg/dL (0.6-1.0) Estimated GFR (Cockcroft-Gault) 67.1 BUN/Creatinine Ratio 14 (6-20) Glucose Level 88 mg/dL (70-99) Calcium Level 10.1 mg/dL (8.5-10.1) Total Bilirubin 0.2 mg/dL (0.2-1.0) Aspartate Amino Transf (AST/SGOT) 14 U/L (15-37) Alanine Aminotransferase (ALT/SGPT) 20 U/L (14-59) Alkaline Phosphatase 104 U/L (46-116) Total Protein 7.8 g/dL (6.4-8.2) Albumin 3.4 g/dL (3.4-5.0) Albumin/Globulin Ratio 0.8 (1.0-1.7) Lipase 137 U/L (73-393) Laboratory Tests Test 05/29/19 17:19 05/29/19 19:32 05/29/19 19:40 Urine Collection Type Unknown Urine Color Kacy Urine Clarity Clear Urine pH 6.0 Urine Specific [place] 1.025 Urine Protein Negative mg/dL (NEG-TRACE) Urine Glucose (UA) Negative mg/dL (NEG) Urine Ketones (Stick) Negative mg/dL (NEG) Urine Blood Trace (NEG) Urine Nitrite Negative (NEG) Urine Bilirubin Small (NEG) Urine Urobilinogen Dipstick 0.2 mg/dL (0.2 mg/dL) Urine Leukocyte Esterase Small (NEG) Urine RBC 1-2 /HPF (0-2) Urine WBC 5-10 /HPF (0-4) Urine Squamous Epithelial Cells Mod /LPF Urine Bacteria Many /HPF (0-FEW) Urine Mucus Mod /LPF Bedside Urine HCG, Qualitative Hcg negative (Negative) White Blood Count 16.8 x10^3/uL (4.0-11.0) Red Blood Count 4.99 x10^6/uL (3.50-5.40) Hemoglobin 13.9 g/dL (12.0-15.5) Hematocrit 40.7 % (36.0-47.0) Mean Corpuscular Volume 82 fL (79-100) Mean Corpuscular Hemoglobin 28 pg (25-35) Mean Corpuscular Hemoglobin Concent 34 g/dL (31-37) Red Cell Distribution Width 14.4 % (11.5-14.5) Platelet Count 428 x10^3/uL (140-400) Neutrophils (%) (Auto) 62 % (31-73) Lymphocytes (%) (Auto) 27 % (24-48) Monocytes (%) (Auto) 8 % (0-9) Eosinophils (%) (Auto) 3 % (0-3) Basophils (%) (Auto) 0 % (0-3) Neutrophils # (Auto) 10.4 x10^3/uL (1.8-7.7) Lymphocytes # (Auto) 4.6 x10^3/uL (1.0-4.8) Monocytes # (Auto) 1.3 x10^3/uL (0.0-1.1) Eosinophils # (Auto) 0.4 x10^3/uL (0.0-0.7) Basophils # (Auto) 0.0 x10^3/uL (0.0-0.2) Sodium Level 142 mmol/L (136-145) Potassium Level 3.8 mmol/L (3.5-5.1) Chloride Level 102 mmol/L (98-107) Carbon Dioxide Level 30 mmol/L (21-32) Anion Gap 10 (6-14) Blood Urea Nitrogen 13 mg/dL (7-20) Creatinine 0.9 mg/dL (0.6-1.0) Estimated GFR (Cockcroft-Gault) 67.1 BUN/Creatinine Ratio 14 (6-20) Glucose Level 88 mg/dL (70-99) Calcium Level 10.1 mg/dL (8.5-10.1) Total Bilirubin 0.2 mg/dL (0.2-1.0) Aspartate Amino Transf (AST/SGOT) 14 U/L (15-37) Alanine Aminotransferase (ALT/SGPT) 20 U/L (14-59) Alkaline Phosphatase 104 U/L (46-116) Total Protein 7.8 g/dL (6.4-8.2) Albumin 3.4 g/dL (3.4-5.0) Albumin/Globulin Ratio 0.8 (1.0-1.7) Lipase 137 U/L (73-393) Medications Current Medications Sodium Chloride 1,000 ml @ 1,000 mls/hr Q1H IV Last administered on 05/29/19at 19:57; Start 05/29/19 at 20:00; Stop 05/29/19 at 20:59; Status DC Ketorolac Tromethamine (Toradol 30mg Vial) 30 mg 1X ONCE IV Last administered on 05/29/19at 20:04; Start 05/29/19 at 20:15; Stop 05/29/19 at 20:16; Status DC Fentanyl Citrate (Fentanyl 2ml Vial) 50 mcg PRN Q2HR PRN IV PAIN Last administered on 05/30/19at 12:47; Start 05/29/19 at 20:00 Oxycodone/ Acetaminophen (Percocet 5/325) 1 tab PRN Q4HRS PRN PO PAIN; Start 05/29/19 at 20:00 Levofloxacin/ Dextrose (Levaquin Per Pharmacy) 1 each PRN DAILY PRN MC SEE COMMENTS; Start 05/29/19 at 20:00 Acetaminophen (Tylenol) 500 mg PRN Q6HRS PRN PO MILD PAIN / TEMP; Start 05/29/19 at 20:00 Ondansetron HCl (Zofran) 4 mg PRN Q6HRS PRN IV NAUSEA/VOMITING; Start 05/29/19 at 20:00 Zolpidem Tartrate (Ambien) 5 mg PRN QHS PRN PO INSOMNIA Last administered on at 23:15; Start 05/29/19 at 20:00 Ondansetron HCl (Zofran) 4 mg PRN Q8HRS PRN IV NAUSEA/VOMITING; Start 05/29/19 at 20:30; Stop 05/30/19 at 20:29; Status UNV Sodium Chloride 1,000 ml @ 150 mls/hr Q6H40M IV Last administered on 05/30/19at 03:35; Start 05/29/19 at 21:00; Stop 05/30/19 at 20:59 Levofloxacin/ Dextrose 100 ml @ 100 mls/hr Q24H IV Last administered on 05/29/19at 21:41; Start 05/29/19 at 21:00 Piperacillin Sod/ Tazobactam Sod 3.375 gm/Sodium Chloride 50 ml @ 100 mls/hr Q6HRS IV Last administered on 05/30/19at 14:00; Start 05/30/19 at 00:00 Metronidazole 100 ml @ 100 mls/hr Q8HRS IV Last administered on 05/30/19at 14:45; Start 05/29/19 at 22:00 Cefazolin Sodium/ Dextrose 50 ml @ 100 mls/hr 1X PREOP PRN IV protocol Last administered on 05/30/19at 11:26; Start 05/30/19 at 10:30; Stop 05/31/19 at 18:00 Propofol 20 ml @ As Directed STK-MED ONCE IV ; Start 05/30/19 at 10:38; Stop 05/30/19 at 10:38; Status DC Lidocaine HCl (Lidocaine Pf 2% Vial) 5 ml STK-MED ONCE .ROUTE ; Start 05/30/19 at 10:38; Stop 05/30/19 at 10:38; Status DC Ondansetron HCl (Zofran) 4 mg STK-MED ONCE .ROUTE ; Start 05/30/19 at 10:38; Stop 05/30/19 at 10:38; Status DC Dexamethasone Sodium Phosphate (Decadron) 4 mg STK-MED ONCE .ROUTE ; Start 05/30/19 at 10:38; Stop 05/30/19 at 10:38; Status DC Fentanyl Citrate (Fentanyl 2ml Vial) 100 mcg STK-MED ONCE .ROUTE ; Start 05/30/19 at 10:38; Stop 05/30/19 at 10:38; Status DC Midazolam HCl (Versed) 2 mg STK-MED ONCE .ROUTE ; Start 05/30/19 at 10:38; Stop 05/30/19 at 10:38; Status DC Rocuronium [place] (Zemuron) 50 mg STK-MED ONCE .ROUTE ; Start 05/30/19 at 10:39; Stop 05/30/19 at 10:39; Status DC Bupivacaine HCl/ Epinephrine Bitart (Sensorcain-Mpf Epi 0.5%-1:[id number]) 30 ml 1X ONCE INJ Last administered on 05/30/19at 12:13; Start 05/30/19 at 10:45; Stop 05/30/19 at 10:46; Status DC Fentanyl Citrate (Fentanyl 2ml Vial) 25 mcg PRN Q5MIN PRN IV MILD PAIN 1-3; Start 05/30/19 at 11:00; Stop 05/31/19 at 10:59 Fentanyl Citrate (Fentanyl 2ml Vial) 50 mcg PRN Q5MIN PRN IV MODERATE TO SEVERE PAIN; Start 05/30/19 at 11:00; Stop 05/31/19 at 10:59 Morphine Sulfate (Morphine Sulfate) 1 mg PRN Q10MIN PRN IV SEVERE PAIN 7-10 Last administered on 05/30/19at 13:12; Start 05/30/19 at 11:00; Stop 05/31/19 at 10:59 Ringer's Solution 1,000 ml @ 30 mls/hr Q24H IV Last administered on 05/30/19at 11:26; Start 05/30/19 at 10:47; Stop 05/30/19 at 22:46 Hydromorphone HCl (Dilaudid) 0.5 mg PRN Q10MIN PRN IV SEV PAIN, Second choice; Start 05/30/19 at 11:00; Stop 05/31/19 at 10:59 Prochlorperazine Edisylate (Compazine) 5 mg PACU PRN PRN IV NAUSEA, MRX1; Start 05/30/19 at 11:00; Stop 05/31/19 at 10:59 Glucagon (Glucagen) 1 mg STK-MED ONCE .ROUTE ; Start 05/30/19 at 10:51; Stop 05/30/19 at 10:51; Status DC Iohexol (Omnipaque 300 Mg/ml) 50 ml STK-MED ONCE .ROUTE Last administered on 05/30/19at 12:13; Start 05/30/19 at 10:51; Stop 05/30/19 at 10:51; Status DC Cellulose (Surgicel Hemostat 4x8) 1 each STK-MED ONCE .ROUTE Last administered on 05/30/19at 11:38; Start 05/30/19 at 10:51; Stop 05/30/19 at 10:51; Status DC Neostigmine Methylsulfate (Neostigmine Methylsulfate) 5 mg STK-MED ONCE .ROUTE ; Start 05/30/19 at 11:56; Stop 05/30/19 at 11:56; Status DC Glycopyrrolate (Robinul) 1 mg STK-MED ONCE .ROUTE ; Start 05/30/19 at 11:56; Stop 05/30/19 at 11:56; Status DC Sevoflurane (Ultane) 60 ml STK-MED ONCE IH ; Start 05/30/19 at 12:07; Stop 05/30/19 at 12:07; Status DC Fentanyl Citrate (Fentanyl 2ml Vial) 100 mcg STK-MED ONCE .ROUTE ; Start 05/30/19 at 12:35; Stop 05/30/19 at 12:36; Status DC Diphenhydramine HCl (Benadryl) 25 mg PRN Q6HRS PRN PO ITCHING; Start 05/30/19 at 12:45 Enoxaparin Sodium (Lovenox 40mg Syringe) 30 mg Q24H SQ ; Start 05/30/19 at 13:00 Sodium Chloride (Normal Saline Flush) 3 ml QSHIFT PRN IV AFTER MEDS AND BLOOD DRAWS; Start 05/30/19 at 12:45 Potassium Chloride/Sodium Chloride 1,000 ml @ 100 mls/hr Q10H IV ; Start 05/30/19 at 12:41 Dextrose (Dextrose 50%-Water Syringe) 12.5 gm PRN Q15MIN PRN IV SEE COMMENTS; Start 05/30/19 at 12:45; Status UNV Dextrose 250 ml PRN Q15MIN PRN IV SEE COMMENTS; Start 05/30/19 at 12:45 Oxycodone/ Acetaminophen (Percocet 5/325) 1 tab PRN Q4HRS PRN PO MILD PAIN, 1ST CHOICE; Start 05/30/19 at 12:45 Oxycodone/ Acetaminophen (Percocet 5/325) 2 tab PRN Q4HRS PRN PO MODERATE PAIN, SEVERE PAIN; Start 05/30/19 at 12:45 Naloxone HCl (Narcan) 0.4 mg PRN Q2MIN PRN IV SEE INSTRUCTIONS; Start 05/30/19 at 12:45 Sodium Chloride 1,000 ml @ 25 mls/hr Q24H IV ; Start 05/30/19 at 12:41 Hydromorphone HCl (Dilaudid) 1 mg PRN Q3HRS PRN IV PAIN Last administered on 05/30/19at 14:00; Start 05/30/19 at 12:45 Docusate Sodium (Colace) 100 mg BID PO ; Start 05/30/19 at 13:00 Ondansetron HCl (Zofran) 4 mg PRN Q6HRS PRN IV NAUESA, 1ST CHOICE; Start 05/30/19 at 12:45 Morphine Sulfate (Morphine Sulfate) 2 mg STK-MED ONCE .ROUTE ; Start 05/30/19 at 12:55; Stop 05/30/19 at 12:56; Status DC Alprazolam (Xanax) 0.5 mg PRN Q6HRS PRN PO ANXIETY / AGITATION; Start 05/30/19 at 15:00; Status UNV Non-Formulary Medication (Linaclotide (Linzess)) 145 mcg DAILY07 PO ; Start 05/31/19 at 07:00; Status UNV Active Scripts Active Reported Linzess (Linaclotide) 145 Mcg Capsule 145 Mcg PO DAILY07 Alprazolam 0.5 Mg Tablet 0.5 Mg PO PRN Q6HRS PRN Vitals/I & O Vital Sign - Last 24 Hours 05/29/19 05/29/19 05/29/19 05/29/19 19:13 20:21 20:25 20:30 Temp 98.8 97.4 98.8 97.4 Pulse 76 68 73 Resp 16 18 20 B/P (MAP) 123/69 (87) 117/55 (75) 119/76 (90) Pulse Ox 98 98 95 O2 Delivery Room Air Room Air Room Air Room Air 05/29/19 05/30/19 05/30/19 05/30/19 23:26 03:36 07:00 07:50 Temp 97.6 97.6 97.7 97.6 97.6 97.7 Pulse 75 69 54 Resp 18 18 18 B/P (MAP) 114/61 (78) 102/65 (77) 99/50 (66) Pulse Ox 96 96 100 O2 Delivery Room Air Room Air Room Air Room Air 05/30/19 05/30/19 05/30/19 05/30/19 11:24 12:23 12:23 12:40 Temp 97.7 97.8 97.8 97.7 97.8 97.8 Pulse 54 90 62 Resp 15 19 16 B/P (MAP) 117/68 116/63 114/62 Pulse Ox 100 96 98 O2 Delivery Room Air Simple Mask Mask Simple Mask O2 Flow Rate 8 8 8.0 05/30/19 05/30/19 05/30/19 05/30/19 12:40 12:47 12:55 12:59 Temp 97.8 97.8 Pulse 62 Resp 20 18 18 18 B/P (MAP) 104/61 Pulse Ox 97 96 96 O2 Delivery Simple Mask Simple Mask Simple Mask Simple Mask O2 Flow Rate 8.0 8.0 8.0 8.0 05/30/19 05/30/19 05/30/19 05/30/19 13:10 13:12 13:25 13:40 Temp 97.8 97.8 97.8 97.8 Pulse 51 58 59 Resp 18 18 18 18 B/P (MAP) 100/61 116/62 120/70 (87) Pulse Ox 96 96 95 97 O2 Delivery Simple Mask Simple Mask Nasal Cannula Nasal Cannula O2 Flow Rate 8.0 8.0 4 2.0 05/30/19 05/30/19 05/30/19 05/30/19 13:55 14:00 14:00 14:00 Pulse 56 Resp 18 B/P (MAP) 107/70 (82) Pulse Ox 96 98 O2 Delivery Nasal Cannula Nasal Cannula Nasal Cannula Nasal Cannula O2 Flow Rate 2.0 2.0 05/30/19 05/30/19 05/30/19 05/30/19 14:00 14:00 14:10 14:45 Pulse 57 Resp 18 B/P (MAP) 112/64 (80) Pulse Ox 97 O2 Delivery Nasal Cannula Nasal Cannula Nasal Cannula Nasal Cannula O2 Flow Rate 2.0 Intake and Output 05/29/19 05/29/19 05/30/19 15:00 23:00 07:00 Intake Total 250 ml 120 ml Balance 250 ml 120 ml SHELL PARK MD May 30, 2019 14:59
[2019-05-30] MEDS ORDERED: ALPRAZolam 0.5 MG TABLET PO PRN (15:00)
[2019-05-30] MEDS: oxyCODONE/APAP 5/325 1 TAB TABLET PO PRN ×3 (16:37→21:24)
[2019-05-30] MEDS: ONDANSETRON PF 4 MG/2 ML VIAL. IV PRN (18:19)
[2019-05-30] MEDS: LACTOBACILLUS RHAMNOSUS GG 1 CAPSULE. PO SCH (21:15)
[2019-05-30] MEDS: ZOLPIDEM 5 MG TABLET. PO PRN (23:45)
[2019-05-31 03:00] VITALS: BP 124/77
[2019-05-31 05:05] LABS: BASO # 0.1 x10^3/uL (0.0-0.2); BASO % 1 % (0-3); EOS # 0.1 x10^3/uL (0.0-0.7); EOS % 0 % (0-3); HEMOGLOBIN 12.4 g/dL (12.0-15.5); LYMPH # 3.8 x10^3/uL (1.0-4.8); LYMPH % 19 % (24-48); MEAN CORPUSCULAR HEMOGLOBIN 27 pg (25-35); MEAN CORPUSCULAR HGB CONC 34 g/dL (31-37); MEAN CORPUSCULAR VOLUME 82 fL (79-100); MONO # 1.5 x10^3/uL (0.0-1.1); MONO % 7 % (0-9); NEUT # 14.9 x10^3/uL (1.8-7.7); NEUT % 73 % (31-73); PLATELET COUNT 415 x10^3/uL (140-400); RED BLOOD COUNT 4.54 x10^6/uL (3.50-5.40); RED CELL DISTRIBUTION WIDTH 14.7 % (11.5-14.5); WHITE BLOOD COUNT 20.3 x10^3/uL (4.0-11.0)
[2019-05-31 05:28] LABS: CALCIUM 9.4 mg/dL (8.5-10.1); CREATININE 0.9 mg/dL (0.6-1.0); GFR 67.1; POTASSIUM 4.3 mmol/L (3.5-5.1)
[2019-05-31] MEDS: PIPERACILLIN/TAZOBACTAM 3.375 GM in IV NORMAL SALINE 50ML 50 ML IV SCH ×3 (05:48→16:48)
[2019-05-31] MEDS: POTASSIUM CL 20MEQ-0.45% NACL 1,000 ML IV SCH ×2 (05:48→16:49)
[2019-05-31] MEDS: fentaNYL PF VIAL 100 MCG/2 ML VIAL IV PRN (05:58)
[2019-05-31] MEDS: NON FORMULARY ITEM (Linaclotide (Linzess) 145 MCG) PO SCH (06:38)
[2019-05-31 07:00] VITALS: BP 110/74
[2019-05-31] MEDS: oxyCODONE/APAP 5/325 1 TAB TABLET PO PRN (07:39)
[2019-05-31] MEDS: DOCUSATE SODIUM 100 MG CAPSULE. PO SCH ×2 (07:39→21:03)
[2019-05-31] MEDS: LACTOBACILLUS RHAMNOSUS GG 1 CAPSULE. PO SCH ×2 (07:39→21:03)
[2019-05-31 07:58] LABS: % BANDS 3 % (0-9); % LYMPHS 26 % (24-48); % MONOS 1 % (0-10); % SEGS 70 % (35-66); PLT ESTIMATE ADEQUATE (ADEQUATE)
--- NOTE | 2019-05-31 08:15 | PDOC ---
SURGICAL PROGRESS NOTE Subjective up to bedside chair, has RUQ pain, tells me the pain pills aren't working Vital Signs Vital Signs Date Time Temp Pulse Resp B/P (MAP) Pulse Ox O2 Delivery O2 Flow Rate FiO2 05/31/19 07:41 94 Room Air 1.5 05/31/19 06:33 20 05/31/19 03:00 97.6 50 124/77 (93) 97.6 I&O Intake and Output 05/31/19 07:00 Intake Total 3750 ml Output Total 10 ml Balance 3740 ml Intake Oral 600 ml IV Total 1950 ml Other 1200 ml Output Estimated Blood Loss 10 ml # Voids 3 PATIENT HAS A SANTIAGO: No General: Alert, No acute distress Lungs: Normal air movement Labs Laboratory Tests Test 05/29/19 17:19 05/29/19 19:32 05/29/19 19:40 05/31/19 05:00 Urine Collection Type Unknown Urine Color Kacy Urine Clarity Clear Urine pH 6.0 Urine Specific [place] 1.025 Urine Protein Negative mg/dL (NEG-TRACE) Urine Glucose (UA) Negative mg/dL (NEG) Urine Ketones (Stick) Negative mg/dL (NEG) Urine Blood Trace (NEG) Urine Nitrite Negative (NEG) Urine Bilirubin Small (NEG) Urine Urobilinogen Dipstick 0.2 mg/dL (0.2 mg/dL) Urine Leukocyte Esterase Small (NEG) Urine RBC 1-2 /HPF (0-2) Urine WBC 5-10 /HPF (0-4) Urine Squamous Epithelial Cells Mod /LPF Urine Bacteria Many /HPF (0-FEW) Urine Mucus Mod /LPF Bedside Urine HCG, Qualitative Hcg negative (Negative) White Blood Count 16.8 x10^3/uL (4.0-11.0) 20.3 x10^3/uL (4.0-11.0) Red Blood Count 4.99 x10^6/uL (3.50-5.40) 4.54 x10^6/uL (3.50-5.40) Hemoglobin 13.9 g/dL (12.0-15.5) 12.4 g/dL (12.0-15.5) Hematocrit 40.7 % (36.0-47.0) 37.0 % (36.0-47.0) Mean Corpuscular Volume 82 fL (79-100) 82 fL (79-100) Mean Corpuscular Hemoglobin 28 pg (25-35) 27 pg (25-35) Mean Corpuscular Hemoglobin Concent 34 g/dL (31-37) 34 g/dL (31-37) Red Cell Distribution Width 14.4 % (11.5-14.5) 14.7 % (11.5-14.5) Platelet Count 428 x10^3/uL (140-400) 415 x10^3/uL (140-400) Neutrophils (%) (Auto) 62 % (31-73) 73 % (31-73) Lymphocytes (%) (Auto) 27 % (24-48) 19 % (24-48) Monocytes (%) (Auto) 8 % (0-9) 7 % (0-9) Eosinophils (%) (Auto) 3 % (0-3) 0 % (0-3) Basophils (%) (Auto) 0 % (0-3) 1 % (0-3) Neutrophils # (Auto) 10.4 x10^3/uL (1.8-7.7) 14.9 x10^3/uL (1.8-7.7) Lymphocytes # (Auto) 4.6 x10^3/uL (1.0-4.8) 3.8 x10^3/uL (1.0-4.8) Monocytes # (Auto) 1.3 x10^3/uL (0.0-1.1) 1.5 x10^3/uL (0.0-1.1) Eosinophils # (Auto) 0.4 x10^3/uL (0.0-0.7) 0.1 x10^3/uL (0.0-0.7) Basophils # (Auto) 0.0 x10^3/uL (0.0-0.2) 0.1 x10^3/uL (0.0-0.2) Sodium Level 142 mmol/L (136-145) 137 mmol/L (136-145) Potassium Level 3.8 mmol/L (3.5-5.1) 4.3 mmol/L (3.5-5.1) Chloride Level 102 mmol/L (98-107) 105 mmol/L (98-107) Carbon Dioxide Level 30 mmol/L (21-32) 24 mmol/L (21-32) Anion Gap 10 (6-14) 8 (6-14) Blood Urea Nitrogen 13 mg/dL (7-20) 11 mg/dL (7-20) Creatinine 0.9 mg/dL (0.6-1.0) 0.9 mg/dL (0.6-1.0) Estimated GFR (Cockcroft-Gault) 67.1 67.1 BUN/Creatinine Ratio 14 (6-20) Glucose Level 88 mg/dL (70-99) 119 mg/dL (70-99) Calcium Level 10.1 mg/dL (8.5-10.1) 9.4 mg/dL (8.5-10.1) Total Bilirubin 0.2 mg/dL (0.2-1.0) Aspartate Amino Transf (AST/SGOT) 14 U/L (15-37) Alanine Aminotransferase (ALT/SGPT) 20 U/L (14-59) Alkaline Phosphatase 104 U/L (46-116) Total Protein 7.8 g/dL (6.4-8.2) Albumin 3.4 g/dL (3.4-5.0) Albumin/Globulin Ratio 0.8 (1.0-1.7) Lipase 137 U/L (73-393) Segmented Neutrophils % 70 % (35-66) Band Neutrophils % 3 % (0-9) Lymphocytes % 26 % (24-48) Monocytes % 1 % (0-10) Platelet Estimate Adequate (ADEQUATE) Laboratory Tests Test 05/31/19 05:00 White Blood Count 20.3 x10^3/uL (4.0-11.0) Red Blood Count 4.54 x10^6/uL (3.50-5.40) Hemoglobin 12.4 g/dL (12.0-15.5) Hematocrit 37.0 % (36.0-47.0) Mean Corpuscular Volume 82 fL (79-100) Mean Corpuscular Hemoglobin 27 pg (25-35) Mean Corpuscular Hemoglobin Concent 34 g/dL (31-37) Red Cell Distribution Width 14.7 % (11.5-14.5) Platelet Count 415 x10^3/uL (140-400) Neutrophils (%) (Auto) 73 % (31-73) Lymphocytes (%) (Auto) 19 % (24-48) Monocytes (%) (Auto) 7 % (0-9) Eosinophils (%) (Auto) 0 % (0-3) Basophils (%) (Auto) 1 % (0-3) Neutrophils # (Auto) 14.9 x10^3/uL (1.8-7.7) Lymphocytes # (Auto) 3.8 x10^3/uL (1.0-4.8) Monocytes # (Auto) 1.5 x10^3/uL (0.0-1.1) Eosinophils # (Auto) 0.1 x10^3/uL (0.0-0.7) Basophils # (Auto) 0.1 x10^3/uL (0.0-0.2) Segmented Neutrophils % 70 % (35-66) Band Neutrophils % 3 % (0-9) Lymphocytes % 26 % (24-48) Monocytes % 1 % (0-10) Platelet Estimate Adequate (ADEQUATE) Sodium Level 137 mmol/L (136-145) Potassium Level 4.3 mmol/L (3.5-5.1) Chloride Level 105 mmol/L (98-107) Carbon Dioxide Level 24 mmol/L (21-32) Anion Gap 8 (6-14) Blood Urea Nitrogen 11 mg/dL (7-20) Creatinine 0.9 mg/dL (0.6-1.0) Estimated GFR (Cockcroft-Gault) 67.1 Glucose Level 119 mg/dL (70-99) Calcium Level 9.4 mg/dL (8.5-10.1) Problem List Problems Medical Problems: (1) Urinary tract infection Status: Acute Assessment/Plan POD 1 l/s edd may be able to go home later today if improves will change pain meds CAROLE PEREZ MD May 31, 2019 08:15
[2019-05-31] MEDS: ONDANSETRON PF 4 MG/2 ML VIAL. IV PRN (10:16)
[2019-05-31 11:00] VITALS: BP 101/54
[2019-05-31] MEDS: HYDROcodone/APAP 7.5/325MG 1 TAB TABLET PO PRN ×3 (11:52→21:06)
[2019-05-31] MEDS: ENOXAPARIN 40 MG/0.4 ML SYRINGE. SQ SCH (11:52)
--- NOTE | 2019-05-31 11:54 | PDOC ---
PROGRESS NOTES Chief Complaint Chief Complaint 1. Acalculous cholecystitis w SIRS abx pain anxiety disorder irritable bowel obese, BMI 32 History of Present Illness History of Present Illness still having a lot of pain, meds changed, OOB to chair cx pending on abx, pain OK, cont current IV prn pain meds, try diet later Vitals Vitals Vital Signs Date Time Temp Pulse Resp B/P (MAP) Pulse Ox O2 Delivery O2 Flow Rate FiO2 05/31/19 08:46 20 94 Room Air 1.5 05/31/19 07:00 97.9 60 110/74 (86) 97.9 Physical Exam General: Alert, No acute distress Heart: Regular rate Abdomen: Soft, Other (minimally TTP in the RUQ) Extremities: No clubbing Skin: No rashes, No breakdown, No significant lesion Labs LABS Laboratory Tests Test 05/31/19 05:00 White Blood Count 20.3 x10^3/uL (4.0-11.0) Red Blood Count 4.54 x10^6/uL (3.50-5.40) Hemoglobin 12.4 g/dL (12.0-15.5) Hematocrit 37.0 % (36.0-47.0) Mean Corpuscular Volume 82 fL (79-100) Mean Corpuscular Hemoglobin 27 pg (25-35) Mean Corpuscular Hemoglobin Concent 34 g/dL (31-37) Red Cell Distribution Width 14.7 % (11.5-14.5) Platelet Count 415 x10^3/uL (140-400) Neutrophils (%) (Auto) 73 % (31-73) Lymphocytes (%) (Auto) 19 % (24-48) Monocytes (%) (Auto) 7 % (0-9) Eosinophils (%) (Auto) 0 % (0-3) Basophils (%) (Auto) 1 % (0-3) Neutrophils # (Auto) 14.9 x10^3/uL (1.8-7.7) Lymphocytes # (Auto) 3.8 x10^3/uL (1.0-4.8) Monocytes # (Auto) 1.5 x10^3/uL (0.0-1.1) Eosinophils # (Auto) 0.1 x10^3/uL (0.0-0.7) Basophils # (Auto) 0.1 x10^3/uL (0.0-0.2) Segmented Neutrophils % 70 % (35-66) Band Neutrophils % 3 % (0-9) Lymphocytes % 26 % (24-48) Monocytes % 1 % (0-10) Platelet Estimate Adequate (ADEQUATE) Sodium Level 137 mmol/L (136-145) Potassium Level 4.3 mmol/L (3.5-5.1) Chloride Level 105 mmol/L (98-107) Carbon Dioxide Level 24 mmol/L (21-32) Anion Gap 8 (6-14) Blood Urea Nitrogen 11 mg/dL (7-20) Creatinine 0.9 mg/dL (0.6-1.0) Estimated GFR (Cockcroft-Gault) 67.1 Glucose Level 119 mg/dL (70-99) Calcium Level 9.4 mg/dL (8.5-10.1) Assessment and Plan Assessmemt and Plan Problems Medical Problems: (1) Urinary tract infection Status: Acute Comment Review of Relevant I have reviewed the following items gurjit (where applicable) has been applied. Labs Laboratory Tests Test 05/29/19 17:19 05/29/19 19:32 05/29/19 19:40 05/31/19 05:00 Urine Collection Type Unknown Urine Color Kacy Urine Clarity Clear Urine pH 6.0 Urine Specific [place] 1.025 Urine Protein Negative mg/dL (NEG-TRACE) Urine Glucose (UA) Negative mg/dL (NEG) Urine Ketones (Stick) Negative mg/dL (NEG) Urine Blood Trace (NEG) Urine Nitrite Negative (NEG) Urine Bilirubin Small (NEG) Urine Urobilinogen Dipstick 0.2 mg/dL (0.2 mg/dL) Urine Leukocyte Esterase Small (NEG) Urine RBC 1-2 /HPF (0-2) Urine WBC 5-10 /HPF (0-4) Urine Squamous Epithelial Cells Mod /LPF Urine Bacteria Many /HPF (0-FEW) Urine Mucus Mod /LPF Bedside Urine HCG, Qualitative Hcg negative (Negative) White Blood Count 16.8 x10^3/uL (4.0-11.0) 20.3 x10^3/uL (4.0-11.0) Red Blood Count 4.99 x10^6/uL (3.50-5.40) 4.54 x10^6/uL (3.50-5.40) Hemoglobin 13.9 g/dL (12.0-15.5) 12.4 g/dL (12.0-15.5) Hematocrit 40.7 % (36.0-47.0) 37.0 % (36.0-47.0) Mean Corpuscular Volume 82 fL (79-100) 82 fL (79-100) Mean Corpuscular Hemoglobin 28 pg (25-35) 27 pg (25-35) Mean Corpuscular Hemoglobin Concent 34 g/dL (31-37) 34 g/dL (31-37) Red Cell Distribution Width 14.4 % (11.5-14.5) 14.7 % (11.5-14.5) Platelet Count 428 x10^3/uL (140-400) 415 x10^3/uL (140-400) Neutrophils (%) (Auto) 62 % (31-73) 73 % (31-73) Lymphocytes (%) (Auto) 27 % (24-48) 19 % (24-48) Monocytes (%) (Auto) 8 % (0-9) 7 % (0-9) Eosinophils (%) (Auto) 3 % (0-3) 0 % (0-3) Basophils (%) (Auto) 0 % (0-3) 1 % (0-3) Neutrophils # (Auto) 10.4 x10^3/uL (1.8-7.7) 14.9 x10^3/uL (1.8-7.7) Lymphocytes # (Auto) 4.6 x10^3/uL (1.0-4.8) 3.8 x10^3/uL (1.0-4.8) Monocytes # (Auto) 1.3 x10^3/uL (0.0-1.1) 1.5 x10^3/uL (0.0-1.1) Eosinophils # (Auto) 0.4 x10^3/uL (0.0-0.7) 0.1 x10^3/uL (0.0-0.7) Basophils # (Auto) 0.0 x10^3/uL (0.0-0.2) 0.1 x10^3/uL (0.0-0.2) Sodium Level 142 mmol/L (136-145) 137 mmol/L (136-145) Potassium Level 3.8 mmol/L (3.5-5.1) 4.3 mmol/L (3.5-5.1) Chloride Level 102 mmol/L (98-107) 105 mmol/L (98-107) Carbon Dioxide Level 30 mmol/L (21-32) 24 mmol/L (21-32) Anion Gap 10 (6-14) 8 (6-14) Blood Urea Nitrogen 13 mg/dL (7-20) 11 mg/dL (7-20) Creatinine 0.9 mg/dL (0.6-1.0) 0.9 mg/dL (0.6-1.0) Estimated GFR (Cockcroft-Gault) 67.1 67.1 BUN/Creatinine Ratio 14 (6-20) Glucose Level 88 mg/dL (70-99) 119 mg/dL (70-99) Calcium Level 10.1 mg/dL (8.5-10.1) 9.4 mg/dL (8.5-10.1) Total Bilirubin 0.2 mg/dL (0.2-1.0) Aspartate Amino Transf (AST/SGOT) 14 U/L (15-37) Alanine Aminotransferase (ALT/SGPT) 20 U/L (14-59) Alkaline Phosphatase 104 U/L (46-116) Total Protein 7.8 g/dL (6.4-8.2) Albumin 3.4 g/dL (3.4-5.0) Albumin/Globulin Ratio 0.8 (1.0-1.7) Lipase 137 U/L (73-393) Segmented Neutrophils % 70 % (35-66) Band Neutrophils % 3 % (0-9) Lymphocytes % 26 % (24-48) Monocytes % 1 % (0-10) Platelet Estimate Adequate (ADEQUATE) Laboratory Tests Test 05/31/19 05:00 White Blood Count 20.3 x10^3/uL (4.0-11.0) Red Blood Count 4.54 x10^6/uL (3.50-5.40) Hemoglobin 12.4 g/dL (12.0-15.5) Hematocrit 37.0 % (36.0-47.0) Mean Corpuscular Volume 82 fL (79-100) Mean Corpuscular Hemoglobin 27 pg (25-35) Mean Corpuscular Hemoglobin Concent 34 g/dL (31-37) Red Cell Distribution Width 14.7 % (11.5-14.5) Platelet Count 415 x10^3/uL (140-400) Neutrophils (%) (Auto) 73 % (31-73) Lymphocytes (%) (Auto) 19 % (24-48) Monocytes (%) (Auto) 7 % (0-9) Eosinophils (%) (Auto) 0 % (0-3) Basophils (%) (Auto) 1 % (0-3) Neutrophils # (Auto) 14.9 x10^3/uL (1.8-7.7) Lymphocytes # (Auto) 3.8 x10^3/uL (1.0-4.8) Monocytes # (Auto) 1.5 x10^3/uL (0.0-1.1) Eosinophils # (Auto) 0.1 x10^3/uL (0.0-0.7) Basophils # (Auto) 0.1 x10^3/uL (0.0-0.2) Segmented Neutrophils % 70 % (35-66) Band Neutrophils % 3 % (0-9) Lymphocytes % 26 % (24-48) Monocytes % 1 % (0-10) Platelet Estimate Adequate (ADEQUATE) Sodium Level 137 mmol/L (136-145) Potassium Level 4.3 mmol/L (3.5-5.1) Chloride Level 105 mmol/L (98-107) Carbon Dioxide Level 24 mmol/L (21-32) Anion Gap 8 (6-14) Blood Urea Nitrogen 11 mg/dL (7-20) Creatinine 0.9 mg/dL (0.6-1.0) Estimated GFR (Cockcroft-Gault) 67.1 Glucose Level 119 mg/dL (70-99) Calcium Level 9.4 mg/dL (8.5-10.1) Medications Current Medications Sodium Chloride 1,000 ml @ 1,000 mls/hr Q1H IV Last administered on 05/29/19at 19:57; Start 05/29/19 at 20:00; Stop 05/29/19 at 20:59; Status DC Ketorolac Tromethamine (Toradol 30mg Vial) 30 mg 1X ONCE IV Last administered on 05/29/19at 20:04; Start 05/29/19 at 20:15; Stop 05/29/19 at 20:16; Status DC Fentanyl Citrate (Fentanyl 2ml Vial) 50 mcg PRN Q2HR PRN IV PAIN Last administered on 05/31/19at 05:58; Start 05/29/19 at 20:00 Oxycodone/ Acetaminophen (Percocet 5/325) 1 tab PRN Q4HRS PRN PO PAIN Last administered on 05/31/19at 02:19; Start 05/29/19 at 20:00; Stop 05/31/19 at 08:18; Status DC Levofloxacin/ Dextrose (Levaquin Per Pharmacy) 1 each PRN DAILY PRN MC SEE COMMENTS; Start 05/29/19 at 20:00 Acetaminophen (Tylenol) 500 mg PRN Q6HRS PRN PO MILD PAIN / TEMP; Start 05/29/19 at 20:00 Ondansetron HCl (Zofran) 4 mg PRN Q6HRS PRN IV NAUSEA/VOMITING Last administered on 05/31/19at 10:20; Start 05/29/19 at 20:00 Zolpidem Tartrate (Ambien) 5 mg PRN QHS PRN PO INSOMNIA Last administered on 05/30/19at 23:47; Start 05/29/19 at 20:00 Ondansetron HCl (Zofran) 4 mg PRN Q8HRS PRN IV NAUSEA/VOMITING; Start 05/29/19 at 20:30; Stop 05/30/19 at 20:29; Status UNV Sodium Chloride 1,000 ml @ 150 mls/hr Q6H40M IV Last administered on 05/30/19at 03:35; Start 05/29/19 at 21:00; Stop 05/30/19 at 15:14; Status DC Levofloxacin/ Dextrose 100 ml @ 100 mls/hr Q24H IV Last administered on 05/29/19at 21:41; Start 05/29/19 at 21:00; Stop 05/30/19 at 15:14; Status DC Piperacillin Sod/ Tazobactam Sod 3.375 gm/Sodium Chloride 50 ml @ 100 mls/hr Q6HRS IV Last administered on 05/31/19at 05:48; Start 05/30/19 at 00:00 Metronidazole 100 ml @ 100 mls/hr Q8HRS IV Last administered on 05/30/19at 14:45; Start 05/29/19 at 22:00; Stop 05/30/19 at 15:15; Status DC Cefazolin Sodium/ Dextrose 50 ml @ 100 mls/hr 1X PREOP PRN IV protocol Last administered on 05/30/19at 11:26; Start 05/30/19 at 10:30; Stop 05/31/19 at 18:00 Propofol 20 ml @ As Directed STK-MED ONCE IV ; Start 05/30/19 at 10:38; Stop 05/30/19 at 10:38; Status DC Lidocaine HCl (Lidocaine Pf 2% Vial) 5 ml STK-MED ONCE .ROUTE ; Start 05/30/19 at 10:38; Stop 05/30/19 at 10:38; Status DC Ondansetron HCl (Zofran) 4 mg STK-MED ONCE .ROUTE ; Start 05/30/19 at 10:38; Stop 05/30/19 at 10:38; Status DC Dexamethasone Sodium Phosphate (Decadron) 4 mg STK-MED ONCE .ROUTE ; Start 05/30/19 at 10:38; Stop 05/30/19 at 10:38; Status DC Fentanyl Citrate (Fentanyl 2ml Vial) 100 mcg STK-MED ONCE .ROUTE ; Start 05/30/19 at 10:38; Stop 05/30/19 at 10:38; Status DC Midazolam HCl (Versed) 2 mg STK-MED ONCE .ROUTE ; Start 05/30/19 at 10:38; Stop 05/30/19 at 10:38; Status DC Rocuronium [place] (Zemuron) 50 mg STK-MED ONCE .ROUTE ; Start 05/30/19 at 10:39; Stop 05/30/19 at 10:39; Status DC Bupivacaine HCl/ Epinephrine Bitart (Sensorcain-Mpf Epi 0.5%-[id number]) 30 ml 1X ONCE INJ Last administered on 05/30/19at 12:13; Start 05/30/19 at 10:45; Stop 05/30/19 at 10:46; Status DC Fentanyl Citrate (Fentanyl 2ml Vial) 25 mcg PRN Q5MIN PRN IV MILD PAIN 1-3; Start 05/30/19 at 11:00; Stop 05/31/19 at 10:59; Status DC Fentanyl Citrate (Fentanyl 2ml Vial) 50 mcg PRN Q5MIN PRN IV MODERATE TO SEVERE PAIN; Start 05/30/19 at 11:00; Stop 05/31/19 at 10:59; Status DC Morphine Sulfate (Morphine Sulfate) 1 mg PRN Q10MIN PRN IV SEVERE PAIN 7-10 L ast administered on 05/30/19at 13:12; Start 05/30/19 at 11:00; Stop 05/31/19 at 10:59; Status DC Ringer's Solution 1,000 ml @ 30 mls/hr Q24H IV Last administered on 05/30/19at 11:26; Start 05/30/19 at 10:47; Stop 05/30/19 at 22:46; Status DC Hydromorphone HCl (Dilaudid) 0.5 mg PRN Q10MIN PRN IV SEV PAIN, Second choice; Start 05/30/19 at 11:00; Stop 05/31/19 at 10:59; Status DC Prochlorperazine Edisylate (Compazine) 5 mg PACU PRN PRN IV NAUSEA, MRX1; Start 05/30/19 at 11:00; Stop 05/31/19 at 10:59; Status DC Glucagon (Glucagen) 1 mg STK-MED ONCE .ROUTE ; Start 05/30/19 at 10:51; Stop 05/30/19 at 10:51; Status DC Iohexol (Omnipaque 300 Mg/ml) 50 ml STK-MED ONCE .ROUTE Last administered on 05/30/19at 12:13; Start 05/30/19 at 10:51; Stop 05/30/19 at 10:51; Status DC Cellulose (Surgicel Hemostat 4x8) 1 each STK-MED ONCE .ROUTE Last administered on 05/30/19at 11:38; Start 05/30/19 at 10:51; Stop 05/30/19 at 10:51; Status DC Neostigmine Methylsulfate (Neostigmine Methylsulfate) 5 mg STK-MED ONCE .ROUTE ; Start 05/30/19 at 11:56; Stop 05/30/19 at 11:56; Status DC Glycopyrrolate (Robinul) 1 mg STK-MED ONCE .ROUTE ; Start 05/30/19 at 11:56; Stop 05/30/19 at 11:56; Status DC Sevoflurane (Ultane) 60 ml STK-MED ONCE IH ; Start 05/30/19 at 12:07; Stop 05/30/19 at 12:07; Status DC Fentanyl Citrate (Fentanyl 2ml Vial) 100 mcg STK-MED ONCE .ROUTE ; Start 05/30/19 at 12:35; Stop 05/30/19 at 12:36; Status DC Diphenhydramine HCl (Benadryl) 25 mg PRN Q6HRS PRN PO ITCHING; Start 05/30/19 at 12:45 Enoxaparin Sodium (Lovenox 40mg Syringe) 30 mg Q24H SQ ; Start 05/30/19 at 13:00 Sodium Chloride (Normal Saline Flush) 3 ml QSHIFT PRN IV AFTER MEDS AND BLOOD DRAWS; Start 05/30/19 at 12:45 Potassium Chloride/Sodium Chloride 1,000 ml @ 100 mls/hr Q10H IV Last administered on 05/31/19at 05:48; Start 05/30/19 at 12:41 Dextrose (Dextrose 50%-Water Syringe) 12.5 gm PRN Q15MIN PRN IV SEE COMMENTS; Start 05/30/19 at 12:45; Status UNV Dextrose 250 ml PRN Q15MIN PRN IV SEE COMMENTS; Start 05/30/19 at 12:45 Oxycodone/ Acetaminophen (Percocet 5/325) 1 tab PRN Q4HRS PRN PO MILD PAIN, 1ST CHOICE Last administered on 05/30/19at 17:25; Start 05/30/19 at 12:45; Stop 05/31/19 at 08:18; Status DC Oxycodone/ Acetaminophen (Percocet 5/325) 2 tab PRN Q4HRS PRN PO MODERATE PAIN, SEVERE PAIN Last administered on 05/31/19at 07:41; Start 05/30/19 at 12:45 Naloxone HCl (Narcan) 0.4 mg PRN Q2MIN PRN IV SEE INSTRUCTIONS; Start 05/30/19 at 12:45 Sodium Chloride 1,000 ml @ 25 mls/hr Q24H IV ; Start 05/30/19 at 12:41; Stop 05/30/19 at 15:15; Status DC Hydromorphone HCl (Dilaudid) 1 mg PRN Q3HRS PRN IV PAIN Last administered on 05/30/19at 14:00; Start 05/30/19 at 12:45 Docusate Sodium (Colace) 100 mg BID PO Last administered on 05/31/19at 07:41; Start 05/30/19 at 13:00 Ondansetron HCl (Zofran) 4 mg PRN Q6HRS PRN IV NAUESA, 1ST CHOICE; Start 05/30/19 at 12:45 Morphine Sulfate (Morphine Sulfate) 2 mg STK-MED ONCE .ROUTE ; Start 05/30/19 at 12:55; Stop 05/30/19 at 12:56; Status DC Alprazolam (Xanax) 0.5 mg PRN Q6HRS PRN PO ANXIETY / AGITATION; Start 05/30/19 at 15:00 Non-Formulary Medication (Linaclotide (Linzess)) 145 mcg DAILY07 PO ; Start 05/31/19 at 07:00; Status UNV Lactobacillus Rhamnosus (Culturelle) 1 cap BID PO Last administered on 05/31/19at 07:41; Start 05/30/19 at 21:00 Acetaminophen/ Hydrocodone Bitart (Lortab 7.5/325) 1 tab PRN Q4HRS PRN PO MODERATE TO SEVERE PAIN; Start 05/31/19 at 08:15 Active Scripts Active Reported Linzess (Linaclotide) 145 Mcg Capsule 145 Mcg PO DAILY07 Alprazolam 0.5 Mg Tablet 0.5 Mg PO PRN Q6HRS PRN Vitals/I & O Vital Sign - Last 24 Hours 05/30/19 05/30/19 05/30/19 05/30/19 12:23 12:23 12:40 12:40 Temp 97.8 97.8 97.8 97.8 Pulse 90 62 Resp 19 16 20 B/P (MAP) 116/63 114/62 Pulse Ox 96 98 O2 Delivery Simple Mask Mask Simple Mask Simple Mask O2 Flow Rate 8 8 8.0 8.0 05/30/19 05/30/19 05/30/19 05/30/19 12:47 12:55 12:59 13:10 Temp 97.8 97.8 97.8 97.8 Pulse 62 51 Resp 18 18 18 18 B/P (MAP) 104/61 100/61 Pulse Ox 97 96 96 96 O2 Delivery Simple Mask Simple Mask Simple Mask Simple Mask O2 Flow Rate 8.0 8.0 8.0 8.0 05/30/19 05/30/19 05/30/19 05/30/19 13:12 13:25 13:40 13:55 Temp 97.8 97.8 Pulse 58 59 56 Resp 18 18 18 18 B/P (MAP) 116/62 120/70 (87) 107/70 (82) Pulse Ox 96 95 97 96 O2 Delivery Simple Mask Nasal Cannula Nasal Cannula Nasal Cannula O2 Flow Rate 8.0 4 2.0 2.0 05/30/19 05/30/19 05/30/19 05/30/19 14:00 14:00 14:00 14:00 Pulse Ox 98 O2 Delivery Nasal Cannula Nasal Cannula Nasal Cannula Nasal Cannula O2 Flow Rate 2.0 05/30/19 05/30/19 05/30/19 05/30/19 14:00 14:10 14:25 14:40 Pulse 57 57 47 Resp 18 18 18 B/P (MAP) 112/64 (80) 116/72 (87) 122/71 (88) Pulse Ox 97 94 96 O2 Delivery Nasal Cannula Nasal Cannula Nasal Cannula Nasal Cannula O2 Flow Rate 2.0 2.0 2.0 05/30/19 05/30/19 05/30/19 05/30/19 14:45 15:07 15:10 15:40 Pulse 59 63 Resp 18 18 B/P (MAP) 127/70 (89) 117/77 (90) Pulse Ox 98 97 95 O2 Delivery Nasal Cannula Nasal Cannula Nasal Cannula Nasal Cannula O2 Flow Rate 2.0 2.0 1.5 05/30/19 05/30/19 05/30/19 05/30/19 16:37 16:37 16:40 17:25 Pulse 60 Resp 18 B/P (MAP) 111/71 (84) Pulse Ox 98 O2 Delivery Nasal Cannula Nasal Cannula Nasal Cannula Room Air O2 Flow Rate 1.5 05/30/19 05/30/19 05/30/19 05/30/19 18:14 18:15 19:00 19:40 Temp 97.4 97.4 Pulse 53 Resp 18 B/P (MAP) 134/68 (90) Pulse Ox 91 O2 Delivery Room Air Room Air Nasal Cannula Room Air O2 Flow Rate 1.5 05/30/19 05/30/19 05/30/19 05/31/19 21:24 23:00 23:47 01:47 Temp 97.7 97.7 Pulse 50 Resp 20 18 20 20 B/P (MAP) 115/72 (86) Pulse Ox 93 O2 Delivery Room Air Nasal Cannula Room Air Room Air O2 Flow Rate 1.5 05/31/19 05/31/19 05/31/19 05/31/19 01:47 02:19 03:00 04:50 Temp 97.6 97.6 Pulse 50 Resp 20 20 18 20 B/P (MAP) 124/77 (93) Pulse Ox 94 O2 Delivery Room Air Room Air Nasal Cannula Room Air O2 Flow Rate 1.5 05/31/19 05/31/19 05/31/19 05/31/19 05:58 06:33 07:00 07:41 Temp 97.9 97.9 Pulse 60 Resp 20 20 16 B/P (MAP) 110/74 (86) Pulse Ox 94 94 O2 Delivery Room Air Room Air Room Air Room Air O2 Flow Rate 1.5 05/31/19 05/31/19 08:00 08:46 Resp 20 Pulse Ox 94 O2 Delivery Room Air Room Air O2 Flow Rate 1.5 1.5 Intake and Output 05/30/19 05/30/19 05/31/19 15:00 23:00 07:00 Intake Total 550 ml 940 ml 2260 ml Output Total 10 ml Balance 540 ml 940 ml 2260 ml SHELL PARK MD May 31, 2019 11:54
--- NOTE | 2019-05-31 13:07 | NUR ---
SS following for discharge planning. SS reviewed pt chart. Pt is from home with spouse and is currently on room air. No discharge needs noted at this time. SS will continue to follow for discharge planning.
[2019-05-31 15:00] VITALS: BP 115/58
[2019-05-31 19:50] VITALS: BP 120/71
[2019-05-31 23:56] VITALS: BP 107/69
[2019-06-01] MEDS: PIPERACILLIN/TAZOBACTAM 3.375 GM in IV NORMAL SALINE 50ML 50 ML IV SCH ×3 (01:53→12:00)
[2019-06-01] MEDS: HYDROcodone/APAP 7.5/325MG 1 TAB TABLET PO PRN ×2 (02:15→08:06)
[2019-06-01] MEDS: POTASSIUM CL 20MEQ-0.45% NACL 1,000 ML IV SCH (02:15)
[2019-06-01 03:52] VITALS: BP 120/80
[2019-06-01] MEDS: NON FORMULARY ITEM (Linaclotide (Linzess) 145 MCG) PO SCH (06:06)
[2019-06-01 07:00] VITALS: BP 118/72
[2019-06-01] MEDS ORDERED: OXYC1TAB15 PO (07:48)
[2019-06-01] MEDS ORDERED: AMOX1TAB61 PO (07:48)
[2019-06-01] MEDS ORDERED: DOCU-109 PO (07:48)
--- NOTE | 2019-06-01 07:50 | PDOC3 ---
Discharge Summary Visit Information Date of Admission: May 29, 2019 Date of Discharge: Jun 01, 2019 Final Diagnosis 1. Acalculous cholecystitis w SIRS abx pain anxiety disorder irritable bowel obese, BMI 32 Problems Medical Problems: (1) Urinary tract infection Status: Acute Brief Hospital Course Allergies Allergies Coded Allergies Type Severity Reaction Last Updated Verified No Known Drug Allergies 05/29/19 No Vital Signs Vital Signs Date Time Temp Pulse Resp B/P (MAP) Pulse Ox O2 Delivery O2 Flow Rate FiO2 06/01/19 03:52 98.1 72 18 120/80 (93) 94 Room Air 98.1 05/31/19 20:00 1.5 Lab Results Laboratory Tests Test 05/31/19 05:00 White Blood Count 20.3 x10^3/uL (4.0-11.0) Red Blood Count 4.54 x10^6/uL (3.50-5.40) Hemoglobin 12.4 g/dL (12.0-15.5) Hematocrit 37.0 % (36.0-47.0) Mean Corpuscular Volume 82 fL (79-100) Mean Corpuscular Hemoglobin 27 pg (25-35) Mean Corpuscular Hemoglobin Concent 34 g/dL (31-37) Red Cell Distribution Width 14.7 % (11.5-14.5) Platelet Count 415 x10^3/uL (140-400) Neutrophils (%) (Auto) 73 % (31-73) Lymphocytes (%) (Auto) 19 % (24-48) Monocytes (%) (Auto) 7 % (0-9) Eosinophils (%) (Auto) 0 % (0-3) Basophils (%) (Auto) 1 % (0-3) Neutrophils # (Auto) 14.9 x10^3/uL (1.8-7.7) Lymphocytes # (Auto) 3.8 x10^3/uL (1.0-4.8) Monocytes # (Auto) 1.5 x10^3/uL (0.0-1.1) Eosinophils # (Auto) 0.1 x10^3/uL (0.0-0.7) Basophils # (Auto) 0.1 x10^3/uL (0.0-0.2) Segmented Neutrophils % 70 % (35-66) Band Neutrophils % 3 % (0-9) Lymphocytes % 26 % (24-48) Monocytes % 1 % (0-10) Platelet Estimate Adequate (ADEQUATE) Sodium Level 137 mmol/L (136-145) Potassium Level 4.3 mmol/L (3.5-5.1) Chloride Level 105 mmol/L (98-107) Carbon Dioxide Level 24 mmol/L (21-32) Anion Gap 8 (6-14) Blood Urea Nitrogen 11 mg/dL (7-20) Creatinine 0.9 mg/dL (0.6-1.0) Estimated GFR (Cockcroft-Gault) 67.1 Glucose Level 119 mg/dL (70-99) Calcium Level 9.4 mg/dL (8.5-10.1) Brief Hospital Course Ms. Rice is a 48 old admitiwth acuteabd pain, taken to OR for edd on 05/30, DrTaryn Rg. post-op pain, white count up. UTI, but cx neg pt felt well at DC Discharge Information Condition at Discharge: Improved Follow Up: Weeks Disposition/Orders: D/C to Home Scheduled Amoxicillin/Potassium Clav (Augmentin 875-125 Tablet) 1 Each Tablet, 1 TAB PO B ID for infection, #14 Prescribed by: SHELL PARK on 06/01/1947 Linaclotide (Linzess) 145 Mcg Capsule, 145 MCG PO DAILY07 for IRRITABLE BOWEL, (Reported) Entered as Reported by: MARTINE CHENG on 05/30/198 Last Action: Converted on 05/30/191451 by SHELL PARK Scheduled PRN Alprazolam (Alprazolam) 0.5 Mg Tablet, 0.5 MG PO PRN Q6HRS PRN for ANXIETY / AGITATION, Ref 0 (Reported) Entered as Reported by: MARTINE CHENG on 05/30/197 Last Action: Continued on 05/30/191451 by SHELL PARK Docusate Sodium (Colace) 100 Mg Capsule, 100 MG PO BID PRN for CONSTIPATION, #30 Prescribed by: SHELL PARK on 06/01/1947 Oxycodone/Apap 5-325 (Percocet 5-325 Mg Tablet ) 1 Each Tablet, 1 TAB PO PRN Q4HRS PRN for MODERATE PAIN, SEVERE PAIN for 1 Days, #20 Prescribed by: SHELL PARK on 06/01/19 0748 Patient Instructions Patient Instructions > 30 min' face to face, discussed SHELL PARK MD Jun 01, 2019 07:50
[2019-06-01] MEDS: DOCUSATE SODIUM 100 MG CAPSULE. PO SCH (08:06)
[2019-06-01] MEDS: LACTOBACILLUS RHAMNOSUS GG 1 CAPSULE. PO SCH (08:06)
[2019-06-01 08:49] LABS: BASO # 0.1 x10^3/uL (0.0-0.2); BASO % 0 % (0-3); EOS # 0.1 x10^3/uL (0.0-0.7); EOS % 1 % (0-3); HEMATOCRIT 38.3 % (36.0-47.0); HEMOGLOBIN 12.5 g/dL (12.0-15.5); LYMPH # 2.8 x10^3/uL (1.0-4.8); LYMPH % 21 % (24-48); MEAN CORPUSCULAR HEMOGLOBIN 27 pg (25-35); MEAN CORPUSCULAR HGB CONC 33 g/dL (31-37); MEAN CORPUSCULAR VOLUME 82 fL (79-100); MONO % 7 % (0-9); NEUT # 9.7 x10^3/uL (1.8-7.7); NEUT % 71 % (31-73); PLATELET COUNT 385 x10^3/uL (140-400); RED BLOOD COUNT 4.67 x10^6/uL (3.50-5.40); RED CELL DISTRIBUTION WIDTH 14.6 % (11.5-14.5); WHITE BLOOD COUNT 13.6 x10^3/uL (4.0-11.0)
[2019-06-01 09:06] LABS: ALBUMIN 3.1 g/dL (3.4-5.0); ALBUMIN/GLOBULIN RATIO 0.8 (1.0-1.7); CALCIUM 9.5 mg/dL (8.5-10.1); CREATININE 0.8 mg/dL (0.6-1.0); GFR 76.9; POTASSIUM 4.6 mmol/L (3.5-5.1); TOTAL BILIRUBIN 0.4 mg/dL (0.2-1.0); TOTAL PROTEIN 6.8 g/dL (6.4-8.2)
--- NOTE | 2019-06-01 09:21 | PDOC ---
SURGICAL PROGRESS NOTE Subjective feels better pain improved tolerating diet Vital Signs Vital Signs Date Time Temp Pulse Resp B/P (MAP) Pulse Ox O2 Delivery O2 Flow Rate FiO2 06/01/19 09:15 Room Air 06/01/19 07:00 97.6 56 18 118/72 (87) 95 97.6 05/31/19 20:00 1.5 I&O Intake and Output 06/01/19 07:00 Intake Total 1280 ml Output Total 50 ml Balance 1230 ml Intake Oral 1280 ml Other 50 ml # Voids 7 General: Alert, Oriented X3, Cooperative, No acute distress Abdomen: Soft, Other (drain serosang, lap dressings dry) Labs Laboratory Tests Test 05/31/19 05:00 06/01/19 08:25 White Blood Count 20.3 x10^3/uL (4.0-11.0) 13.6 x10^3/uL (4.0-11.0) Red Blood Count 4.54 x10^6/uL (3.50-5.40) 4.67 x10^6/uL (3.50-5.40) Hemoglobin 12.4 g/dL (12.0-15.5) 12.5 g/dL (12.0-15.5) Hematocrit 37.0 % (36.0-47.0) 38.3 % (36.0-47.0) Mean Corpuscular Volume 82 fL (79-100) 82 fL (79-100) Mean Corpuscular Hemoglobin 27 pg (25-35) 27 pg (25-35) Mean Corpuscular Hemoglobin Concent 34 g/dL (31-37) 33 g/dL (31-37) Red Cell Distribution Width 14.7 % (11.5-14.5) 14.6 % (11.5-14.5) Platelet Count 415 x10^3/uL (140-400) 385 x10^3/uL (140-400) Neutrophils (%) (Auto) 73 % (31-73) 71 % (31-73) Lymphocytes (%) (Auto) 19 % (24-48) 21 % (24-48) Monocytes (%) (Auto) 7 % (0-9) 7 % (0-9) Eosinophils (%) (Auto) 0 % (0-3) 1 % (0-3) Basophils (%) (Auto) 1 % (0-3) 0 % (0-3) Neutrophils # (Auto) 14.9 x10^3/uL (1.8-7.7) 9.7 x10^3/uL (1.8-7.7) Lymphocytes # (Auto) 3.8 x10^3/uL (1.0-4.8) 2.8 x10^3/uL (1.0-4.8) Monocytes # (Auto) 1.5 x10^3/uL (0.0-1.1) 1.0 x10^3/uL (0.0-1.1) Eosinophils # (Auto) 0.1 x10^3/uL (0.0-0.7) 0.1 x10^3/uL (0.0-0.7) Basophils # (Auto) 0.1 x10^3/uL (0.0-0.2) 0.1 x10^3/uL (0.0-0.2) Segmented Neutrophils % 70 % (35-66) Band Neutrophils % 3 % (0-9) Lymphocytes % 26 % (24-48) Monocytes % 1 % (0-10) Platelet Estimate Adequate (ADEQUATE) Sodium Level 137 mmol/L (136-145) 138 mmol/L (136-145) Potassium Level 4.3 mmol/L (3.5-5.1) 4.6 mmol/L (3.5-5.1) Chloride Level 105 mmol/L (98-107) 104 mmol/L (98-107) Carbon Dioxide Level 24 mmol/L (21-32) 26 mmol/L (21-32) Anion Gap 8 (6-14) 8 (6-14) Blood Urea Nitrogen 11 mg/dL (7-20) 8 mg/dL (7-20) Creatinine 0.9 mg/dL (0.6-1.0) 0.8 mg/dL (0.6-1.0) Estimated GFR (Cockcroft-Gault) 67.1 76.9 Glucose Level 119 mg/dL (70-99) 93 mg/dL (70-99) Calcium Level 9.4 mg/dL (8.5-10.1) 9.5 mg/dL (8.5-10.1) BUN/Creatinine Ratio 10 (6-20) Total Bilirubin 0.4 mg/dL (0.2-1.0) Aspartate Amino Transf (AST/SGOT) 20 U/L (15-37) Alanine Aminotransferase (ALT/SGPT) 21 U/L (14-59) Alkaline Phosphatase 82 U/L (46-116) Total Protein 6.8 g/dL (6.4-8.2) Albumin 3.1 g/dL (3.4-5.0) Albumin/Globulin Ratio 0.8 (1.0-1.7) Laboratory Tests Test 06/01/19 08:25 White Blood Count 13.6 x10^3/uL (4.0-11.0) Red Blood Count 4.67 x10^6/uL (3.50-5.40) Hemoglobin 12.5 g/dL (12.0-15.5) Hematocrit 38.3 % (36.0-47.0) Mean Corpuscular Volume 82 fL (79-100) Mean Corpuscular Hemoglobin 27 pg (25-35) Mean Corpuscular Hemoglobin Concent 33 g/dL (31-37) Red Cell Distribution Width 14.6 % (11.5-14.5) Platelet Count 385 x10^3/uL (140-400) Neutrophils (%) (Auto) 71 % (31-73) Lymphocytes (%) (Auto) 21 % (24-48) Monocytes (%) (Auto) 7 % (0-9) Eosinophils (%) (Auto) 1 % (0-3) Basophils (%) (Auto) 0 % (0-3) Neutrophils # (Auto) 9.7 x10^3/uL (1.8-7.7) Lymphocytes # (Auto) 2.8 x10^3/uL (1.0-4.8) Monocytes # (Auto) 1.0 x10^3/uL (0.0-1.1) Eosinophils # (Auto) 0.1 x10^3/uL (0.0-0.7) Basophils # (Auto) 0.1 x10^3/uL (0.0-0.2) Sodium Level 138 mmol/L (136-145) Potassium Level 4.6 mmol/L (3.5-5.1) Chloride Level 104 mmol/L (98-107) Carbon Dioxide Level 26 mmol/L (21-32) Anion Gap 8 (6-14) Blood Urea Nitrogen 8 mg/dL (7-20) Creatinine 0.8 mg/dL (0.6-1.0) Estimated GFR (Cockcroft-Gault) 76.9 BUN/Creatinine Ratio 10 (6-20) Glucose Level 93 mg/dL (70-99) Calcium Level 9.5 mg/dL (8.5-10.1) Total Bilirubin 0.4 mg/dL (0.2-1.0) Aspartate Amino Transf (AST/SGOT) 20 U/L (15-37) Alanine Aminotransferase (ALT/SGPT) 21 U/L (14-59) Alkaline Phosphatase 82 U/L (46-116) Total Protein 6.8 g/dL (6.4-8.2) Albumin 3.1 g/dL (3.4-5.0) Albumin/Globulin Ratio 0.8 (1.0-1.7) Problem List Problems Medical Problems: (1) Urinary tract infection Status: Acute Assessment/Plan ok to dc home remove drain FU 1 week [facility] [employer] Jun 01, 2019 09:21
--- NOTE | 2019-06-01 10:30 | NUR ---
Dr. Ruiz contacted re: pt stating Lortab works better for pain. Dr. Ruiz stated he would come give pt new Rx for Lortab.
--- NOTE | 2019-06-01 12:02 | NUR ---
Dr. Millard here to address pain med Rx.
[2019-06-01] MEDS ORDERED: ENOXAPARIN 40 MG/0.4 ML SYRINGE. SQ SCH (13:00)
--- NOTE | 2019-06-01 13:00 | NUR ---
Pt. discharged to home with Rx, verbalized understanding of discharge instructions. Abd [facility] [place] [facility].
--- NOTE | 2019-06-01 19:06 | PATHOLOGY ---
[facility] Accession Number: [id number] . 01 Material submitted: . gallbladder - GALLBLADDER AND CONTENTS . 01 Clinical history: . Cholecystitis . 02 Diagnosis: Gallbladder, cholecystectomy: - Cholelithiasis. - Acute and chronic cholecystitis with increased eosinophils. - Reactive changes of gallbladder neck lymph node. . (JPM:mm; 06/01/2019) [facility]/06/01/2019 . 02 Comment: There is no evidence of malignancy. . (JPM:mm; 06/01/2019) . 02 Electronically signed: . Marco Scales MD, Pathologist NPI- [id number] . 01 Gross description: . The specimen is received in formalin, labeled "Trudy Rice, gallbladder and contents". Received is an intact gallbladder measuring 8.8 x 4.3 x 2.5 cm in greatest dimensions displaying a pink-rivers serosal surface. Opening the specimen reveals a velvety, pink-grissom mucosa with a gallbladder wall thickness of 0.1 cm. Calculi are present displaying a nodular and yellow-grissom to light green appearance, and no masses or lesions are noted grossly. Near the cystic neck, there is a single lymph node identified measuring 1.5 x 1.2 x 0.8 cm displaying pink-grissom, homogenous cut surfaces. [employer] sections, to include the proximal margin, are submitted in cassette A1. The lymph node is trisected and entirely submitted in cassette A2. (CAA; 05/31/2019) QAC/QAC . 02 Pathologist provided ICD-10: K80.12 . 02 CPT . 971077 Specimen Comment: A courtesy copy of this report has been sent to Specimen Comment: [phone], [phone], . Specimen Comment: Report sent to ,DR CELIS / DR MORILLO Performed at: [address] [facility], [place] [id number] MD Saqib Bejarano MD Phone: [phone] Performed at: [facility] [address] [place], [place] [id number] MD Marco Scales MD Phone: [phone]
== END 2019-06-01 13:17 | disposition home or self-care (01) | DRG 418 ==
LOC: ER 17:08 → 4 NORTH 19:51
PROVIDERS: ADMIT Internal Medicine; ATTEND Internal Medicine
PROC: BF101ZZ Fluoroscopy of Bile Ducts using Low Osmolar Contrast (ICD-10-PCS; 2019-05-30)
PROC: 0FT44ZZ Resection of Gallbladder, Percutaneous Endoscopic Approach (ICD-10-PCS; principal; 2019-05-30 11:30)
DX: K80.00 Calculus of gallbladder with acute cholecystitis without obstruction (principal); N39.0 Urinary tract infection, site not specified; R65.10 Systemic inflammatory response syndrome (SIRS) of non-infectious origin without acute organ dysfunction; Z68.32 Body mass index [BMI] 32.0-32.9, adult; E66.9 Obesity, unspecified; F41.9 Anxiety disorder, unspecified; J45.909 Unspecified asthma, uncomplicated; K58.0 Irritable bowel syndrome with diarrhea; K82.8 Other specified diseases of gallbladder; Z90.49 Acquired absence of other specified parts of digestive tract; Z79.899 Other long term (current) drug therapy
CPT/HCPCS: 36415; 74300; 80048; 80053; 81001; 81025; 83690; 85007; 85025; 87086; 88304; A7015; J0696; J1100; J1170; J1610; J1650; J1885; J1956; J2001; J2250; J2270; J2405; J2543; J2704; J2710; J3010; J3490; J7030; J7120; Q9967; 99285-25; G0378